=== PATIENT | female | born 2000 | race African-American/Black ===

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

== ENCOUNTER 2019-01-20 21:04 | Emergency (ER) | payer OTHER ==
[2019-01-20] MEDS ORDERED: ONDANSETRON 4 MG/2 ML VIAL IVPUSH ONE (21:32)
[2019-01-20] MEDS ORDERED: MAG HYDROX/AL HYDROX/SIMETH 30 ML UNIT-DOSE CUP PO ONE (21:32)
[2019-01-20] MEDS ORDERED: FAMOTIDINE 10 MG TABLET PO ONE (21:32)
[2019-01-20] MEDS ORDERED: MAG HYDROX/AL HYDROX/SIMETH 30 ML UNIT-DOSE CUP ONE (21:45)
[2019-01-20] MEDS ORDERED: FAMOTIDINE 10 MG TABLET ONE (21:45)
[2019-01-20] MEDS ORDERED: ONDANSETRON 4 MG/2 ML VIAL ONE (21:46)
[2019-01-20 22:01] VITALS: BMI 25.0
[2019-01-20 22:16] LABS: BASO % 0.5 % (0-2.0); EOS % 0.5 % (0-4.5); HEMATOCRIT 39.2 % (32.4-45.2); HEMOGLOBIN 12.9 GM/dL (10.7-15.3); LYMPH % 19.1 % (8-40); MCH 30.9 pg (25.7-33.7); MCHC 32.8 g/dl (32.0-36.0); MEAN CELL VOLUME 94.2 fl (80-96); MEAN PLT VOLUME 8.9 fl (7.5-11.1); MONO % 8.7 % (3.8-10.2); NEUT % 71.2 % (42.8-82.8); PLATELET COUNT 317 K/MM3 (134-434); RBC 4.16 M/mm3 (3.60-5.2); RDW 13.2 % (11.6-15.6)
--- NOTE | 2019-01-20 22:32 | PDOC ---
History of Present Illness - General Stated Complaint: ABD PAIN Time Seen by Provider: 01/20/19 21:17 History Source: Patient Exam Limitations: No Limitations - History of Present Illness Initial Comments: 01/20/19 21:43 19 yo female PMH chronic leukocytosis, polysubstance abuse including cocaine, heroin, and marijuana (last use 2 days ago) and cyclic vomiting syndrome, presents to the emergency department with epigastric pain, 10 episodes NB/NB vomiting for 4 days. Pain is described as sharp and burning with radiation up into her throat. Pain is constant and not related to eating or drinking, last BM 1 day ago reported as normal and denies difficulty with urination. Denies STI history, LMP 2 weeks ago, no recent travel or sick contacts Past History - Past Medical History Allergies/Adverse Reactions: Allergies Allergy/AdvReac Type Severity Reaction Status Date / Time No Known Allergies Allergy Verified 10/25/18 15:26 Home Medications: Ambulatory Orders NK [No Known Home Medication] 10/25/18 Anemia: No Asthma: Yes Cancer: No Cardiac Disorders: No CVA: No COPD: No CHF: No Dementia: No Diabetes: No GI Disorders: Yes (Gastritis) Disorders: No HTN: Yes Hypercholesterolemia: No Kidney Stones: No Liver Disease: No Psychiatric Problems: Yes (drug abuse/BIPOLAR & DEPRESSION) Seizures: No Thyroid Disease: No - Surgical History Abdominal Surgery: No Appendectomy: No Cardiac Surgery: No Cholecystectomy: No Lung Surgery: No Neurologic Surgery: No Orthopedic Surgery: No - Reproductive History PID: No - Immunization History Td Vaccination: Yes TDAP Vaccination: Yes Immunization Up to Date: Yes - Psycho Social/Smoking Cessation Hx Smoking History: Former smoker Have you smoked in the past 12 months: Yes Number of Cigarettes Smoked Daily: 5 Cigars Per Day: 0 'Breaking Loose' booklet given: 01/31/18 Hx Alcohol Use: No Drug/Substance Use Hx: No (STOPPED SMOKING POT 3WKS AGO) Substance Use Type: Cocaine, Marijuana, Opiates Hx Substance Use Treatment: Yes (completed this program in Nov 2017) Review of Systems - Review of Systems Constitutional: No: Chills, Fever Respiratory: No: Shortness of Breath Cardiac (ROS): No: Chest Pain, Edema ABD/GI: Yes: Nausea, Vomiting, Other (epigastric abdominal pain). No: Constipated, Diarrhea Musculoskeletal: No: Back Pain Neurological: No: Weakness *Physical Exam - Physical Exam General Appearance: Yes: Nourished, Appropriately Dressed, Apparent Distress HEENT: positive: EOMI Neck: positive: Supple. negative: Carotid bruit Respiratory/Chest: positive: Lungs Clear, Normal Breath Sounds. negative: Respiratory Distress, Accessory Muscle Use Cardiovascular: positive: Regular Rhythm, Regular Rate Vascular Pulses: Dorsalis-Pedis (R): 4+, Doralis-Pedis (L): 4+ Gastrointestinal/Abdominal: positive: Flat, Soft. negative: Pulsatile Mass, Distended, Guarding, Rebound, Tenderness Musculoskeletal: negative: CVA Tenderness Extremity: positive: Normal Capillary Refill, Normal Inspection, Normal Range of Motion Integumentary: positive: Normal Color, Dry, Warm Neurologic: positive: Fully Oriented, Alert, Normal Mood/Affect, Normal Response ED Treatment Course - LABORATORY CBC & Chemistry Diagram: 01/20/19 21:50 01/20/19 21:50 Medical Decision Making - Medical Decision Making 01/21/19 03:04 19 yo female PMH chronic leukocytosis, polysubstance abuse including cocaine, heroin, and marijuana (last use 2 days ago) and cyclic vomiting syndrome, anxiet and depression presents to the emergency department with epigastric pain , 10 episodes NB/NB vomiting for 4 days. Pain is described as sharp and burning with radiation up into her throat. Pain is constant and not related to eating or drinking, last BM 1 day ago reported as normal and denies difficulty with urination. Denies STI history, LMP 2 weeks ago, no recent travel or sick contacts Labs show known leukocytosis (15 today however, baseline seems to be around 17) Vitals WNL Pt comfortable in bed, sleeping. Pain is very distractable Pt states the pain is of similar quality and intensity as past episodes which she visited the ER for. Pt has been counseled on cyclic vomiting syndrome and the importance or not using illicit drugs Pt later states that she is constantly in so much pain and wants to kill herself. Pt has seen Psych in the past and has anxiety/depression. Denies having a current plan however states she will kill herself to multiple staff members Call placed to Psych for Eval, pending return call Pt s/o to night team
[2019-01-20 22:53] LABS: BILIRUBIN,TOTAL 0.7 mg/dL (0.2-1); BLOOD UREA NITROGEN 12.8 mg/dL (7-18); CALCIUM 9.6 mg/dL (8.5-10.1); CREATININE 0.7 mg/dL (0.55-1.3); POTASSIUM 3.5 mmol/L (3.5-5.1); TOT PROT 7.4 g/dl (6.4-8.2)
--- NOTE | 2019-01-20 23:05 | PDOC ---
Documentation entered by Chioma Jain SCRIBE, acting as scribe for Shelly Elkins MD. Shelly Elkins MD: This documentation has been prepared by the Cristobal gonzalez Xhesika, SCRIBE, under my direction and personally reviewed by me in its entirety. I confirm that the documentation accurately reflects all work, treatment, procedures, and medical decision making performed by me. Attending Attestation - Resident Resident Name: Benito Zuluaga - ED Attending Attestation I have performed the following: I have examined & evaluated the patient, The case was reviewed & discussed with the resident, I agree w/resident's findings & plan, Exceptions are as noted - HPI HPI: 01/21/19 01:30 19-year-old female brought in by ambulance initially for abdominal burning and then later she said she wanted to harm herself I agree with Dr. Germain's physical exam - Physicial Exam PE: 01/21/19 01:30 Well-nourished well-developed 19-year-old female presented with abdominal pain initially and then became tearful and said she want to harm herself Head normocephalic atraumatic Neck is supple Lungs are clear to auscultation bilaterally CVS regular rate and rhythm S1-S2 Abdomen no was no guarding or rebound Skin warm and dry Neuro alert and oriented and moving all extremities Psych depressed anxious tearful - Medical Decision Making 01/21/19 01:31 Plan is to get psychiatric eval by Dr Ramos in the morning Patient currently does not have any abdominal complaints
[2019-01-21 05:20] LABS: URINE APPEARANCE CLEAR; URINE BILIRUBIN NEGATIVE (NEGATIVE); URINE COLOR YELLOW; URINE GLUCOSE (UA) NEGATIVE (NEGATIVE); URINE KETONE 1+ (NEGATIVE); URINE LEUK ESTERASE NEGATIVE (NEGATIVE); URINE NITRITE NEGATIVE (NEGATIVE); URINE PROTEIN NEGATIVE (NEGATIVE); URINE UROBILINOGEN 0.2 mg/dL (0.2-1.0)
[2019-01-21 05:35] LABS: COCAINE, UR NEGATIVE ng/ml (CUTOFF=300); METHADONE, UR NEGATIVE ng/ml (CUTOFF=300); OPIATES, URI NEGATIVE ng/ml (CUTOFF=300); PHENCYCLIDINE,URINE NEGATIVE ng/ml (CUTOFF=25); URINE AMPHETAMINES NEGATIVE ng/ml (CUTOFF=500); URINE BARBITURATES NEGATIVE ng/ml (CUTOFF=200); URINE BENZODIAZEPINES NEGATIVE ng/ml (CUTOFF=200)
--- NOTE | 2019-01-21 07:26 | PDOC ---
*Physical Exam - Vital Signs Last Vital Signs Temp Pulse Resp BP Pulse Ox 98.5 F 100 H 17 156/95 97 01/20/19 21:10 01/21/19 07:43 01/21/19 07:43 01/21/19 07:43 01/21/19 07:43 <Darling Bae - Last Filed: 01/21/19 11:27> - Vital Signs Last Vital Signs Temp Pulse Resp BP Pulse Ox 98.5 F 87 18 135/72 100 01/20/19 21:10 01/21/19 01:00 01/21/19 01:00 01/21/19 01:00 01/21/19 03:30 <ZiggyJuanWesley Briscoe - Last Filed: 01/21/19 18:39> Heart Score/ECG Review #1 ECG reviewed & interpreted by me at: 11:25 General ECG Interpretation: Sinus Rhythm, Normal Rate 01/21/19 11:28 qtc at 500ms, proloned QT interval. nonspecific T wave abnormalities. <Gentry Baeie Kathiamlelena - Last Filed: 01/21/19 11:27> ED Treatment Course - LABORATORY CBC & Chemistry Diagram: 01/20/19 21:50 01/20/19 21:50 - ADDITIONAL ORDERS Additional order review: Laboratory Results 01/21/19 01/21/19 01/21/19 05:59 05:50 05:50 Serum , Qual Negative Urine Color Urine Appearance Urine pH Ur Specific [place] Urine Protein Urine Glucose (UA) Urine Ketones Urine Blood Urine Nitrite Urine Bilirubin Urine Urobilinogen Ur Leukocyte Esterase Opiates Screen Methadone Screen Acetaminophen <2. Barbiturate Screen Phencyclidine Screen Ur Amphetamines Screen MDMA (Ecstasy) Screen Benzodiazepines Screen Cocaine Screen U Marijuana (THC) Screen Alcohol, Quantitative < 3.0 01/21/19 01/21/19 05:00 05:00 Serum , Qual Urine Color Yellow Urine Appearance Clear Urine pH 6.0 Ur Specific [place] 1.018 Urine Protein Negative Urine Glucose (UA) Negative Urine Ketones 1+ H Urine Blood Negative Urine Nitrite Negative Urine Bilirubin Negative Urine Urobilinogen 0.2 Ur Leukocyte Esterase Negative Opiates Screen Negative Methadone Screen Negative Acetaminophen Barbiturate Screen Negative Phencyclidine Screen Negative Ur Amphetamines Screen Negative MDMA (Ecstasy) Screen Negative Benzodiazepines Screen Negative Cocaine Screen Negative U Marijuana (THC) Screen Positive A* Alcohol, Quantitative 01/20/19 21:50 RBC 4.16 MCV 94.2 MCHC 32.8 RDW 13.2 MPV 8.9 Neutrophils % 71.2 Lymphocytes % 19.1 D Monocytes % 8.7 Eosinophils % 0.5 D Basophils % 0.5 - Medications Given in the ED: ED Medications Discontinued Medications Generic Name Dose Route Start Last Admin Trade Name Andree PRN Reason Stop Dose Admin Al Hydroxide/Mg Hydroxide 30 ml 01/20/19 21:32 01/20/19 22:02 Mylanta Oral Suspension - PO 01/20/19 21:33 30 ml ONCE ONE Administration Famotidine 10 mg 01/20/19 21:32 01/20/19 22:02 Acid Counter Top Assembler PO 01/20/19 21:33 10 mg ONCE ONE Administration Lorazepam 1 mg 01/21/19 07:51 01/21/19 07:57 Ativan Injection - IVPUSH 01/21/19 07:52 1 mg ONCE ONE Administration Ondansetron HCl 4 mg 01/20/19 21:32 01/20/19 22:02 Zofran Injection IVPUSH 01/20/19 21:33 4 mg ONCE ONE Administration <Darling Bae - Last Filed: 01/21/19 11:27> - LABORATORY CBC & Chemistry Diagram: 01/20/19 21:50 01/20/19 21:50 - ADDITIONAL ORDERS Additional order review: Laboratory Results 01/21/19 01/21/19 01/21/19 05:59 05:00 05:00 Sodium Potassium Chloride Carbon Dioxide Anion Gap BUN Creatinine Est GFR (CKD-EPI)AfAm Est GFR (CKD-EPI)NonAf Random Glucose Calcium Total Bilirubin AST ALT Alkaline Phosphatase Total Protein Albumin Lipase Urine Color Yellow Urine Appearance Clear Urine pH 6.0 Ur Specific [place] 1.018 Urine Protein Negative Urine Glucose (UA) Negative Urine Ketones 1+ H Urine Blood Negative Urine Nitrite Negative Urine Bilirubin Negative Urine Urobilinogen 0.2 Ur Leukocyte Esterase Negative Opiates Screen Negative Methadone Screen Negative Acetaminophen <2. Barbiturate Screen Negative Phencyclidine Screen Negative Ur Amphetamines Screen Negative MDMA (Ecstasy) Screen Negative Benzodiazepines Screen Negative Cocaine Screen Negative U Marijuana (THC) Screen Positive A* 01/20/19 01/20/19 21:50 21:50 Sodium 135 L Potassium 3.5 Chloride 102 Carbon Dioxide 24 Anion Gap 9 BUN 12.8 Creatinine 0.7 Est GFR (CKD-EPI)AfAm 144.56 Est GFR (CKD-EPI)NonAf 124.72 Random Glucose 91 Calcium 9.6 Total Bilirubin 0.7 AST 17 ALT 15 Alkaline Phosphatase 93 Total Protein 7.4 Albumin 4.0 Lipase 140 Urine Color Urine Appearance Urine pH Ur Specific [place] Urine Protein Urine Glucose (UA) Urine Ketones Urine Blood Urine Nitrite Urine Bilirubin Urine Urobilinogen Ur Leukocyte Esterase Opiates Screen Methadone Screen Acetaminophen Barbiturate Screen Phencyclidine Screen Ur Amphetamines Screen MDMA (Ecstasy) Screen Benzodiazepines Screen Cocaine Screen U Marijuana (THC) Screen 01/20/19 21:50 RBC 4.16 MCV 94.2 MCHC 32.8 RDW 13.2 MPV 8.9 Neutrophils % 71.2 Lymphocytes % 19.1 D Monocytes % 8.7 Eosinophils % 0.5 D Basophils % 0.5 - Medications Given in the ED: ED Medications Discontinued Medications Generic Name Dose Route Start Last Admin Trade Name Andree PRN Reason Stop Dose Admin Al Hydroxide/Mg Hydroxide 30 ml 01/20/19 21:32 01/20/19 22:02 Mylanta Oral Suspension - PO 01/20/19 21:33 30 ml ONCE ONE Administration Famotidine 10 mg 01/20/19 21:32 01/20/19 22:02 Acid Counter Top Assembler PO 01/20/19 21:33 10 mg ONCE ONE Administration Ondansetron HCl 4 mg 01/20/19 21:32 01/20/19 22:02 Zofran Injection IVPUSH 01/20/19 21:33 4 mg ONCE ONE Administration <Wesley Brink - Last Filed: 01/21/19 18:39> Medical Decision Making - Medical Decision Making 01/21/19 07:[address]Ahmed Bay 19 y/o F hx of polysubstance abuse coming in for cyclic vomiting nausea and vomiting adressed Pt. states she is suicidal Dr. Ramos has been called for psych eval Says he will come in to see the patient. Pt. disposition pending pscych evaluation. 01/21/19 08:51 Dr. Ramos contacted for possible ETA. meg left on his answering service. 01/21/19 10:30 recommends transfer to psych facility due to patients suicidal ideation. 01/21/19 17:26 Bed found for patient at [facility] accepting physician Dr. Knutson pickup by [facility] ETA 7pm 01/21/19 18:38 EKG: sinus rhythm with marked sinus arrthymia, prolonged QT, <Wesley Brink - Last Filed: 01/21/19 18:39> Discharge <Darling Bae - Last Filed: 01/21/19 11:27> <Wesley Brink - Last Filed: 01/21/19 18:39> - Discharge Information Clinical Impression/Diagnosis: Suicide ideation, Acute depression, Marijuana use Condition: Fair Disposition: TRANSFER ACUTE CARE/OTHER HOSP
[2019-01-21] MEDS ORDERED: LORazepam 2 MG/ML SDV VIAL ONE ×4 (07:54→20:54)
--- NOTE | 2019-01-21 10:18 | CON.PSY ---
Psychiatry Consult Chief Complaint: i feel depressed and i want to kill myself. I have been smoking too much Marijuana. I am under lot of stress. pATIENT HAS NBEEN FREQUENTING Er with somatic comPLAINTS. Symptoms: reports: Depressed Mood, Suicidality, Decreased Motivation - Previous Psychiatric Treatment Outpatient: None Inpatient: None - Previous Substance Abuse Treatment Outpatient: None Inpatient: None - Allergies Allergies: Allergies Allergy/AdvReac Type Severity Reaction Status Date / Time No Known Allergies Allergy Verified 10/25/18 15:26 - Current Living Status Usual Living Arrangement: With Parent - Current Mental Status Evaluation Appearance: Disheveled Attitude: Guarded - Affect Affect: Constrictive Appropriateness: Appropriate to Content - Mood Mood: Depressed - Speech/Language Expressive: Coherent - Psychomotor Activity Psychomotor Activity: Slowed - Thought Process Thought Process: Intact - Thought Content Hallucinations: Absent Delusions: Absent - Self Perception Self Perception: No Impairment - Cognition Attention: Alert Orientation: Time Memory, Immediate Recall: Intact Memory, Short Term: 3/3 Memory, Remote with Promptin/3 - Concentration Serial Sevens Intact: No Simple Calculations Intact: Yes - Abstraction Proverb Interpretation: Intact Judgement: Severely Impaired - Insight Insight: Impaired - Impulse Control Impulse Control: Severly Impaired - Suicidal Ideation Suicidal Ideation: Yes (NO CONCRETE PLANS, except for excessiveMarijuana u) - Homicidal Ideation Homicidal Ideation: No Assessment/Plan 1) Transfer to Psych for Depression with suicidal ideas and ? plans.
--- NOTE | 2019-01-21 10:39 | PDOC ---
*Physical Exam - Vital Signs Last Vital Signs Temp Pulse Resp BP Pulse Ox 98.5 F 100 H 17 156/95 97 01/20/19 21:10 01/21/19 07:43 01/21/19 07:43 01/21/19 07:43 01/21/19 07:43 ED Treatment Course - LABORATORY CBC & Chemistry Diagram: 01/20/19 21:50 01/20/19 21:50 - ADDITIONAL ORDERS Additional order review: Laboratory Results 01/21/19 01/21/19 01/21/19 05:59 05:50 05:50 Sodium Potassium Chloride Carbon Dioxide Anion Gap BUN Creatinine Est GFR (CKD-EPI)AfAm Est GFR (CKD-EPI)NonAf Random Glucose Calcium Total Bilirubin AST ALT Alkaline Phosphatase Total Protein Albumin Lipase Serum , Qual Negative Urine Color Urine Appearance Urine pH Ur Specific [place] Urine Protein Urine Glucose (UA) Urine Ketones Urine Blood Urine Nitrite Urine Bilirubin Urine Urobilinogen Ur Leukocyte Esterase Opiates Screen Methadone Screen Acetaminophen <2. Barbiturate Screen Phencyclidine Screen Ur Amphetamines Screen MDMA (Ecstasy) Screen Benzodiazepines Screen Cocaine Screen U Marijuana (THC) Screen Alcohol, Quantitative < 3.0 01/21/19 01/21/19 01/20/19 05:00 05:00 21:50 Sodium Potassium Chloride Carbon Dioxide Anion Gap BUN Creatinine Est GFR (CKD-EPI)AfAm Est GFR (CKD-EPI)NonAf Random Glucose Calcium Total Bilirubin AST ALT Alkaline Phosphatase Total Protein Albumin Lipase 140 Serum , Qual Urine Color Yellow Urine Appearance Clear Urine pH 6.0 Ur Specific [place] 1.018 Urine Protein Negative Urine Glucose (UA) Negative Urine Ketones 1+ H Urine Blood Negative Urine Nitrite Negative Urine Bilirubin Negative Urine Urobilinogen 0.2 Ur Leukocyte Esterase Negative Opiates Screen Negative Methadone Screen Negative Acetaminophen Barbiturate Screen Negative Phencyclidine Screen Negative Ur Amphetamines Screen Negative MDMA (Ecstasy) Screen Negative Benzodiazepines Screen Negative Cocaine Screen Negative U Marijuana (THC) Screen Positive A* Alcohol, Quantitative 01/20/19 21:50 Sodium 135 L Potassium 3.5 Chloride 102 Carbon Dioxide 24 Anion Gap 9 BUN 12.8 Creatinine 0.7 Est GFR (CKD-EPI)AfAm 144.56 Est GFR (CKD-EPI)NonAf 124.72 Random Glucose 91 Calcium 9.6 Total Bilirubin 0.7 AST 17 ALT 15 Alkaline Phosphatase 93 Total Protein 7.4 Albumin 4.0 Lipase Serum , Qual Urine Color Urine Appearance Urine pH Ur Specific [place] Urine Protein Urine Glucose (UA) Urine Ketones Urine Blood Urine Nitrite Urine Bilirubin Urine Urobilinogen Ur Leukocyte Esterase Opiates Screen Methadone Screen Acetaminophen Barbiturate Screen Phencyclidine Screen Ur Amphetamines Screen MDMA (Ecstasy) Screen Benzodiazepines Screen Cocaine Screen U Marijuana (THC) Screen Alcohol, Quantitative 01/20/19 21:50 RBC 4.16 MCV 94.2 MCHC 32.8 RDW 13.2 MPV 8.9 Neutrophils % 71.2 Lymphocytes % 19.1 D Monocytes % 8.7 Eosinophils % 0.5 D Basophils % 0.5 - Medications Given in the ED: ED Medications Discontinued Medications Generic Name Dose Route Start Last Admin Trade Name Freq PRN Reason Stop Dose Admin Al Hydroxide/Mg Hydroxide 30 ml 01/20/19 21:32 01/20/19 22:02 Mylanta Oral Suspension - PO 01/20/19 21:33 30 ml ONCE ONE Administration Famotidine 10 mg 01/20/19 21:32 01/20/19 22:02 Acid Trencher Driver PO 01/20/19 21:33 10 mg ONCE ONE Administration Lorazepam 1 mg 01/21/19 07:51 01/21/19 07:57 Ativan Injection - IVPUSH 01/21/19 07:52 1 mg ONCE ONE Administration Ondansetron HCl 4 mg 01/20/19 21:32 01/20/19 22:02 Zofran Injection IVPUSH 01/20/19 21:33 4 mg ONCE ONE Administration Medical Decision Making - Medical Decision Making 01/21/19 10:38 pt signed out overnight team pending psych eval, +marijuana use and h/o cyclic vomiting and abdominal pain. seen by Dr Ramos, 10AM 2 PC filled out, will need inpatient psych will arrange for transport. SW and RN team made aware, remains on 1:1 for SI/ depression. Discharge - Discharge Information Problems reviewed: Yes Clinical Impression/Diagnosis: Suicide ideation, Acute depression, Marijuana use Condition: Fair Disposition: TRANSFER ACUTE CARE/OTHER HOSP - Follow up/Referral - Patient Discharge Instructions - Post Discharge Activity
[2019-01-21] MEDS ORDERED: ACETAMINOPHEN 1000 MG/100 ML VIAL (NON FORMULARY) IVPB ONE (12:57)
[2019-01-21] MEDS ORDERED: ACETAMINOPHEN INJECTION 100 ML IVPB ONE (13:22)
[2019-01-21] MEDS ORDERED: IBUPROFEN 600 MG TABLET (FP) PO ONE ×2 (16:38→18:32)
[2019-01-21] MEDS ORDERED: MAG HYDROX/AL HYDROX/SIMETH 30 ML UNIT-DOSE CUP ONE (20:43)
[2019-01-21] MEDS ORDERED: MAG HYDROX/AL HYDROX/SIMETH 30 ML UNIT-DOSE CUP PO ONE (20:54)
[2019-01-21] MEDS ORDERED: ONDANSETRON 4 MG/2 ML VIAL ONE (20:55)
[2019-01-21] MEDS ORDERED: ONDANSETRON 4 MG/2 ML VIAL IVPUSH ONE (20:58)
[2019-01-21 21:03] VITALS: BP 152/99; PULSE 98; TEMP 98.3
--- NOTE | 2019-01-22 10:34 | EKG ---
Test Reason : Blood Pressure : / mmHG Vent. Rate : 095 BPM Atrial Rate : 095 BPM P-R Int : 144 ms QRS Dur : 076 ms QT Int : 398 ms P-R-T Axes : 059 057 049 degrees QTc Int : 500 ms SINUS RHYTHM WITH MARKED SINUS ARRHYTHMIA PROLONGED QT ABNORMAL ECG WHEN COMPARED WITH ECG OF 25-OCT-2018 13:21, NO SIGNIFICANT CHANGE WAS FOUND Confirmed by ROJELIO LAWSON, RUBY ([id number]) on 01/22/2019 10:34:31 AM Referred By: Confirmed By:RUBY SERRATO MD
== END 2019-01-21 21:03 | disposition short-term general hospital (02) ==
LOC: JER 21:04
PROC: 3E033NZ Introduction of Analgesics, Hypnotics, Sedatives into Peripheral Vein, Percutaneous Approach (ICD-10-PCS; principal; 2019-01-20)
PROC: 3E033NZ Introduction of Analgesics, Hypnotics, Sedatives into Peripheral Vein, Percutaneous Approach (ICD-10-PCS; 2019-01-20)
DX: F32.9 Major depressive disorder, single episode, unspecified (principal); R45.851 Suicidal ideations; F11.10 Opioid abuse, uncomplicated; R11.15 Cyclical vomiting syndrome unrelated to migraine; F14.10 Cocaine abuse, uncomplicated; F31.9 Bipolar disorder, unspecified; D72.829 Elevated white blood cell count, unspecified; I10 Essential (primary) hypertension; Z87.09 Personal history of other diseases of the respiratory system
CPT/HCPCS: 36415; 80053; 80307; 81003; 83690; 84703; 85025; 87077; 87086; 93005; 93010; 96374; 96375; 96376; 99285-25; J0131

== ENCOUNTER 2019-03-16 13:30 | Emergency (ER) | payer OTHER ==
[2019-03-16] MEDS ORDERED: LORazepam 2 MG/ML SDV VIAL ONE ×2 (13:48→14:29)
--- NOTE | 2019-03-16 13:54 | PDOC ---
History of Present Illness - General Chief Complaint: Pain Stated Complaint: ABDOMINAL PAIN Time Seen by Provider: 03/16/19 13:51 History Source: Patient Exam Limitations: No Limitations, Clinical Condition - History of Present Illness Initial Comments: 03/16/19 13:53 Source: Patient, poor historian, thrashing about, intermittently answering vs crying out HPI: 19yo F PMH chronic leukocytosis, polysubstance abuse (cocaine, heroin, and marijuana), pancreatitis, cyclic vomiting syndrome, frequent flyer presenting to the ED w/epigastric pain, N/V. Intermittent epigastric pain with multiple visits for similar pains non-radiating, sharp vs burning, associated with 5 episodes of NBNB emesis this morning. Denies current CP, endorses SOB with crying and thrashing about, denies recent illness, fevers, chills. LMP: "Last month." Denies lower abdominal pain. Lives with mother, unemployed, not in school. Sexually active, uses condoms, states that she could not be . All: NKDA Meds: per chart PMH: as above PSH: unable to obtain Past History - Past Medical History Allergies/Adverse Reactions: Allergies Allergy/AdvReac Type Severity Reaction Status Date / Time No Known Allergies Allergy Verified 03/16/19 13:54 Home Medications: Ambulatory Orders Famotidine [Pepcid] 40 mg PO DAILY 30 Days #30 tablet 03/16/19 Ondansetron HCl [Zofran] 4 mg PO TID PRN #10 tablet 03/16/19 Anemia: No Asthma: Yes Cancer: No Cardiac Disorders: No CVA: No COPD: No CHF: No Dementia: No Diabetes: No GI Disorders: Yes (Gastritis) Disorders: No HTN: Yes Hypercholesterolemia: No Kidney Stones: No Liver Disease: No Psychiatric Problems: Yes (drug abuse/BIPOLAR & DEPRESSION) Seizures: No Thyroid Disease: No - Surgical History Abdominal Surgery: No Appendectomy: No Cardiac Surgery: No Cholecystectomy: No Lung Surgery: No Neurologic Surgery: No Orthopedic Surgery: No - Reproductive History PID: No - Immunization History Td Vaccination: Yes TDAP Vaccination: Yes Immunization Up to Date: Yes - Psycho Social/Smoking Cessation Hx Smoking History: Former smoker Have you smoked in the past 12 months: Yes Number of Cigarettes Smoked Daily: 5 Cigars Per Day: 0 'Breaking Loose' booklet given: 01/31/18 Hx Alcohol Use: No Drug/Substance Use Hx: No (STOPPED SMOKING POT 3WKS AGO) Substance Use Type: Cocaine, Marijuana, Opiates Hx Substance Use Treatment: Yes (completed this program in Nov 2017) Review of Systems - Review of Systems Able to Perform ROS?: No (pt minimally cooperative) Is the patient limited Mohawk proficient: Yes Constitutional: No: Chills, Fever Respiratory: Yes: Shortness of Breath (while thrashing). No: Cough, Productive cough Cardiac (ROS): No: Chest Pain, Irregular Heart Rate, Syncope, Chest Tightness ABD/GI: Yes: Nausea, Vomiting. No: Constipated, Diarrhea : No: Burning, Dysuria, Pain *Physical Exam - Physical Exam 03/16/19 14:29 GEN: Violently shaking, stops briefly when asked to stop, shouting. Alert and oriented. HEENT: NCAT, EOMI. Sclera anicteric, noninjected. No facial asymmetry. Moist mucous membranes. Normal voice. Trachea midline. CV: RRR, S1/S2, no murmurs / rubs / gallops appreciated. LUNG: CTAB, normal work of breathing. No wheezes, rales, rhonchi. No cough. GI: Soft, +tender in epigastrium, nondistended, no masses. EXTREMITIES: No LE edema. No obvious deformities of all extremities. SKIN: Warm, dry, non-jaundiced. PSYCH: Psychomotor agitation. NEURO: Moving all extremities well. Normal strength and sensation grossly. ED Treatment Course - LABORATORY CBC & Chemistry Diagram: 03/16/19 14:00 03/16/19 14:00 - Medications Given in the ED: ED Medications Discontinued Medications Generic Name Dose Route Start Last Admin Trade Name Freq PRN Reason Stop Dose Admin Lorazepam 2 mg 03/16/19 13:40 03/16/19 13:50 Ativan Injection - IM 03/16/19 13:41 2 mg ONCE ONE Administration Medical Decision Making - Medical Decision Making 03/16/19 14:37 19yo F PMH chronic leukocytosis, polysubstance abuse (cocaine, heroin, and marijuana), pancreatitis, cyclic vomiting syndrome, frequent flyer presenting to the ED w/epigastric pain, N/V. DDX: Cyclic vomiting, /ectopic, viral gastritis, malingering. - CBC, CMP, Preg, Lipase - Ativan - EKG - anti-emetic pending QTc - 1L IVF - UA, UTox 03/16/19 14:45 - Patient went to restroom with urine cup, emerged vomiting clear water into emesis bag ~16oz, denies drinking water in restroom - Of note, normal ambulation to restroom and back, shaking resumed shortly after back in bed 03/16/19 15:12 - Patient now with non-tender abdomen, endorsing continued nausea - Denies recent drug use, states she has not smoked marijuana for 3 months - EKG 97BPM, NSR, normal axis, normal intervals, QTc 452, no ischemic morphologies 03/16/19 15:23 - Reglan - Pepcid - Ofirmev 03/16/19 17:13 - Remains non-tender, found sleeping, starts writhing shortly after being awoke - Continued nausea, zofran ordered 03/16/19 17:15 - Labs unremarkable aside from isolated leukocytosis c/w prior 03/16/19 18:31 - Patient without nausea, drinking juice - [place] [facility] [place] Dispo: Home Discharge - Discharge Information Problems reviewed: Yes Clinical Impression/Diagnosis: Cyclical vomiting Abdominal pain Qualifiers: Abdominal location: epigastric Qualified Code(s): R10.13 - Epigastric pain Condition: Improved Disposition: HOME - Admission No - Follow up/Referral Referrals: Cadence Isaac, LOSS CONTROL REPRESENTATIVE [Primary Care Provider] - - Patient Discharge Instructions Patient Printed Discharge Instructions: DI for Nausea -- Adult, DI for Vomiting -- Adult Additional Instructions: You were evaluated for your vomiting today. It is most likely caused by your marijuana use. Take the prescriptions as prescribed to help with pain and vomiting. Follow up with your primary care doctor this week. Return to the ED for any new or worsening symptoms. - Post Discharge Activity
[2019-03-16 14:02] VITALS: TEMP 98.1; BMI 24.0
--- NOTE | 2019-03-16 15:28 | PDOC ---
Documentation entered by Kei Easton SCRIBE, acting as scribe for Isidra Nunes MD. Isidra Nunes MD: This documentation has been prepared by the Rustam gonzalez Daniel, SCRIBE, under my direction and personally reviewed by me in its entirety. I confirm that the documentation accurately reflects all work, treatment, procedures, and medical decision making performed by me. Attending Attestation - Resident Resident Name: ReyesJay - ED Attending Attestation I have performed the following: I have examined & evaluated the patient, The case was reviewed & discussed with the resident, I agree w/resident's findings & plan, Exceptions are as noted - HPI HPI: 03/16/19 14:07 The patient is a 19 year old female with a past medical history of chronic leukocytosis, polysubstance abuse (cocaine, heroin, and marijuana), pancreatitis , and cyclic vomiting syndrome here today for evaluation of abdominal pain. The patient reports that she has had 10 days of diffuse abdominal pain and notes associated vomiting (5 episodes today). Patient denies headache, lightheadedness. Denies fever, chills. Denies chest pain, shortness of breath. Denies diarrhea. Allergies: NKA PCP: Cadence Isaac - Physicial Exam PE: 03/16/19 15:20 awake alert lungs clear bilat heart reg tachycardia. abd soft nt nd ext wwp. skin diaphoretic, nuero alert oriented x 3. - Medical Decision Making 03/16/19 15:21 19 yo F h/o cyclic vomting, substance abuse here with c/o abd pain and vomiting. pt has been seen several times for the past. denies any drug use in over 3 months. pt was found to be forcefully vomiting in ed, screaming and shaking requesting medication for her pain and vomiting. plan ativan, antitemetics. reassess. iv hydration tox screen. Heart Score/ECG Review #1 General ECG Interpretation: Sinus Rhythm, Normal Rate (97), Normal Intervals, No acute ischemic changes
[2019-03-16] MEDS ORDERED: FAMOTIDINE 20 MG/50 ML IVPB 20 MG/50 ML MG IVPB ONE ×2 (15:31→15:40)
[2019-03-16] MEDS ORDERED: METOCLOPRAMIDE HCL INJECTION 10 MG/2 ML VIAL IVPUSH ONE (15:31)
[2019-03-16] MEDS ORDERED: ACETAMINOPHEN 1000 MG/100 ML VIAL (NON FORMULARY) IVPB ONE (15:38)
[2019-03-16] MEDS ORDERED: METOCLOPRAMIDE HCL INJECTION 10 MG/2 ML VIAL ONE (15:40)
[2019-03-16 15:51] LABS: BASO % 0.4 % (0-2.0); EOS % 0.5 % (0-4.5); HEMOGLOBIN 13.2 GM/dL (10.7-15.3); LYMPH % 10.5 % (8-40); MCH 30.1 pg (25.7-33.7); MCHC 32.9 g/dl (32.0-36.0); MEAN CELL VOLUME 91.6 fl (80-96); MONO % 3.3 % (3.8-10.2); NEUT % 85.3 % (42.8-82.8); PLATELET COUNT 367 K/MM3 (134-434); RBC 4.37 M/mm3 (3.60-5.2); RDW 13.4 % (11.6-15.6)
[2019-03-16 16:10] LABS: ALBUMIN 4.3 g/dl (3.4-5.0); BILIRUBIN,TOTAL 0.4 mg/dL (0.2-1); BLOOD UREA NITROGEN 11.7 mg/dL (7-18); CREATININE 0.8 mg/dL (0.55-1.3); POTASSIUM 4.3 mmol/L (3.5-5.1); TOT PROT 8.1 g/dl (6.4-8.2)
[2019-03-16] MEDS ORDERED: ACETAMINOPHEN INJECTION 100 ML IVPB ONE (16:31)
[2019-03-16] MEDS ORDERED: ONDANSETRON 4 MG/2 ML VIAL IVPUSH ONE (17:13)
[2019-03-16] MEDS ORDERED: ONDANSETRON 4 MG/2 ML VIAL ONE (17:21)
[2019-03-16 18:04] VITALS: BP 148/90; PULSE 98
--- NOTE | 2019-03-17 09:44 | EKG ---
Test Reason : Blood Pressure : / mmHG Vent. Rate : 097 BPM Atrial Rate : 097 BPM P-R Int : 140 ms QRS Dur : 078 ms QT Int : 356 ms P-R-T Axes : 076 060 059 degrees QTc Int : 452 ms NORMAL SINUS RHYTHM BIATRIAL ENLARGEMENT ABNORMAL ECG WHEN COMPARED WITH ECG OF 21-JAN-2019 11:23, NO SIGNIFICANT CHANGE WAS FOUND Confirmed by AJNAE PATEL MD ([id number]) on 03/17/2019 9:43:45 AM Referred By: Confirmed By:JANAE PATEL MD
== END 2019-03-16 18:40 | disposition home or self-care (01) ==
LOC: JER 13:30
PROC: 3E023NZ Introduction of Analgesics, Hypnotics, Sedatives into Muscle, Percutaneous Approach (ICD-10-PCS; principal; 2019-03-16)
PROC: 3E033GC Introduction of Other Therapeutic Substance into Peripheral Vein, Percutaneous Approach (ICD-10-PCS; 2019-03-16)
PROC: 3E033GC Introduction of Other Therapeutic Substance into Peripheral Vein, Percutaneous Approach (ICD-10-PCS; 2019-03-16)
PROC: 3E033GC Introduction of Other Therapeutic Substance into Peripheral Vein, Percutaneous Approach (ICD-10-PCS; 2019-03-16)
PROC: 3E033NZ Introduction of Analgesics, Hypnotics, Sedatives into Peripheral Vein, Percutaneous Approach (ICD-10-PCS; 2019-03-16)
PROC: 3E033NZ Introduction of Analgesics, Hypnotics, Sedatives into Peripheral Vein, Percutaneous Approach (ICD-10-PCS; 2019-03-16)
DX: R11.15 Cyclical vomiting syndrome unrelated to migraine (principal); D72.829 Elevated white blood cell count, unspecified; F19.10 Other psychoactive substance abuse, uncomplicated; K86.9 Disease of pancreas, unspecified; F31.9 Bipolar disorder, unspecified
CPT/HCPCS: 36415; 80053; 83690; 84703; 85025; 93005; 93010; 96365; 96372; 96375; 99284-25; J0131

== ENCOUNTER 2019-03-17 12:45 | Inpatient (IN) | payer OTHER ==
--- NOTE | 2019-03-17 12:59 | PDOC ---
History of Present Illness - General Chief Complaint: Pain Stated Complaint: ABDOMINAL PAIN/vomiting Time Seen by Provider: 03/17/19 12:58 - History of Present Illness Initial Comments: 03/17/19 16:15 19 y/o F hx of cyclic vomiting, polysubstance abuse (cocaine, heroin,marijuana) , depression, anxiety, bipolar disorder presents with abdominal pain, nausea and vomiting. Pt is a bounce back from yesterday for the same complaint. Pt. reports epigastric pain that began yesterday night after discharge yesterday. Unable to characterize the pain at this time . Has had multiple episodes of non- bilious bloody emesis. She had 2 episodes of emesis here in the ED which were non-bloody. Of note, patient is a frequent flyer for the same complaint and has tested positive for marijuana on last visit. Pt states that she is depressed and wants to harm herself. she denies an active plan, or homicidal ideation. Pt has spent 3 weeks at [facility] for depression and suicidal ideation in the past. She denies, fevers, chills, bloody/tarry stools. 03/17/19 16:17 03/17/19 16:18 03/17/19 16:24 Past History - Past Medical History Allergies/Adverse Reactions: Allergies Allergy/AdvReac Type Severity Reaction Status Date / Time No Known Allergies Allergy Verified 03/17/19 12:48 Home Medications: Ambulatory Orders Famotidine [Pepcid] 40 mg PO DAILY 30 Days #30 tablet 03/16/19 Ondansetron HCl [Zofran] 4 mg PO TID PRN #10 tablet 03/16/19 Seroquel 100 mg PO HS 03/18/19 Anemia: No Asthma: Yes Cancer: No Cardiac Disorders: No CVA: No COPD: No CHF: No Dementia: No Diabetes: No GI Disorders: Yes (Gastritis) Disorders: No HTN: Yes Hypercholesterolemia: No Kidney Stones: No Liver Disease: No Psychiatric Problems: Yes (drug abuse/BIPOLAR & DEPRESSION) Seizures: No Thyroid Disease: No - Surgical History Abdominal Surgery: No Appendectomy: No Cardiac Surgery: No Cholecystectomy: No Lung Surgery: No Neurologic Surgery: No Orthopedic Surgery: No - Reproductive History PID: No - Immunization History Td Vaccination: Yes TDAP Vaccination: Yes Immunization Up to Date: Yes - Psycho Social/Smoking Cessation Hx Smoking History: Former smoker Have you smoked in the past 12 months: Yes Number of Cigarettes Smoked Daily: 5 Cigars Per Day: 0 'Breaking Loose' booklet given: 01/31/18 Hx Alcohol Use: No Drug/Substance Use Hx: No (STOPPED SMOKING POT 3WKS AGO) Substance Use Type: Cocaine, Marijuana, Opiates Hx Substance Use Treatment: Yes (completed this program in Nov 2017) Review of Systems - Review of Systems Comments:: 03/17/19 16:29 GENERAL/CONSTITUTIONAL: No fever or chills. No weakness. HEAD, EYES, EARS, NOSE AND THROAT: No change in vision. No ear pain or discharge. No sore throat. CARDIOVASCULAR: No chest pain or shortness of breath RESPIRATORY: No cough, wheezing, or hemoptysis. GASTROINTESTINAL: +nausea, vomiting. negative for diarrhea, bloody stools GENITOURINARY: No dysuria, frequency, or change in urination. MUSCULOSKELETAL: No joint or muscle swelling or pain. No neck or back pain. SKIN: No rash NEUROLOGIC: No headache, vertigo, loss of consciousness, or change in strength/ sensation. ENDOCRINE: No increased thirst. No abnormal weight change HEMATOLOGIC/LYMPHATIC: No anemia, easy bleeding, or history of blood clots. ALLERGIC/IMMUNOLOGIC: No hives or skin allergy. *Physical Exam - Physical Exam 03/17/19 16:12 GENERAL: Awake, alert, and oriented. In distress HEAD: No signs of trauma, normocephalic, atraumatic EYES: PERRLA, EOMI, sclera anicteric, conjunctiva clear ENT: Auricles normal inspection, hearing grossly normal, nares patent, oropharynx clear without exudates. Moist mucosa NECK: Normal ROM, supple, no lymphadenopathy, JVD, or masses LUNGS: No distress, speaks full sentences, clear to auscultation bilaterally HEART: Regular rate and rhythm, normal S1 and S2, no murmurs, rubs or gallops, peripheral pulses normal and equal bilaterally. ABDOMEN: Soft, normoactive bowel sounds, diffuse abdominal tenderness . EXTREMITIES : Normal inspection, Normal range of motion, no edema. No clubbing or cyanosis NEUROLOGICAL: Cranial nerves II through XII grossly intact. Normal speech, normal gait, no focal sensorimotor deficits SKIN: Warm, Dry, normal turgor, no rashes or lesions noted ED Treatment Course - LABORATORY CBC & Chemistry Diagram: 03/19/19 11:30 03/19/19 11:30 Medical Decision Making - Medical Decision Making 03/17/19 16:30 19 y/o F hx of cyclic vomiting, polysubstance abuse (cocaine, heroin,marijuana) , depression, anxiety, bipolar disorder presents with abdominal pain, nausea and vomiting 03/17/19 16:33 elevated white count 27 hyponateremia 132 creatine kinase 1707 CK-MB 9.5 troponin 0.08 Lipase 53 (not-elevated) Pending EKG, UA, blood cultures, urine cultures -Pt given a dose of zosyn pt was very agitated and moaning profusely. 03/17/19 16:45 ekg: sinus rhythm with marked sinus arrhythmia 03/17/19 17:47 repeat troponin sent. 03/17/19 18:17 Dr. Ramos aware of pt with suicidal ideation with no plan, and no homicidial ideation at this time. He will see pt. in the morning. 03/17/19 18:18 Pt to be admitted to service for rhabdomyolysis. Discharge - Discharge Information Problems reviewed: Yes Clinical Impression/Diagnosis: Rhabdomyolysis Qualifiers: Rhabdomyolysis type: non-traumatic Qualified Code(s): M62.82 - Rhabdomyolysis Condition: Guarded Disposition: HOME - Follow up/Referral - Patient Discharge Instructions - Post Discharge Activity
[2019-03-17] MEDS ORDERED: SODIUM CHLORIDE 0.9% 500 ML INFUS.BAG IV ONE (13:03)
[2019-03-17 13:55] LABS: BASO % 0.4 % (0-2.0); HEMATOCRIT 37.1 % (32.4-45.2); HEMOGLOBIN 12.6 GM/dL (10.7-15.3); LYMPH % 7.3 % (8-40); MCH 30.7 pg (25.7-33.7); MCHC 34.1 g/dl (32.0-36.0); MEAN CELL VOLUME 90.2 fl (80-96); MEAN PLT VOLUME 8.7 fl (7.5-11.1); MONO % 5.9 % (3.8-10.2); NEUT % 86.4 % (42.8-82.8); PLATELET COUNT 321 K/MM3 (134-434); RBC 4.11 M/mm3 (3.60-5.2); RDW 13.3 % (11.6-15.6)
[2019-03-17] MEDS ORDERED: ONDANSETRON 4 MG/2 ML VIAL IVPUSH ONE (14:35)
[2019-03-17] MEDS ORDERED: SUCRALFATE 1 GM TABLET (FP) PO ONE (14:35)
[2019-03-17] MEDS ORDERED: MAG HYDROX/AL HYDROX/SIMETH -MYLANTA- ORAL SUSPENSION PO ONE (14:35)
[2019-03-17] MEDS ORDERED: FAMOTIDINE 20 MG/50 ML IVPB 20 MG/50 ML MG IVPB ONE ×2 (14:35→15:28)
[2019-03-17 14:54] LABS: ALBUMIN 4.3 g/dl (3.4-5.0); BILIRUBIN,TOTAL 0.6 mg/dL (0.2-1); BLOOD UREA NITROGEN 17.3 mg/dL (7-18); CALCIUM 9.4 mg/dL (8.5-10.1); CREATININE 0.8 mg/dL (0.55-1.3); MAGNESIUM 1.8 mg/dL (1.8-2.4); PHOSPHOROUS 3.1 mg/dL (2.5-4.9); POTASSIUM 3.5 mmol/L (3.5-5.1); TOT PROT 7.8 g/dl (6.4-8.2)
[2019-03-17] MEDS ORDERED: SODIUM CHLORIDE 1,000 ML IV STA (15:00)
[2019-03-17] MEDS ORDERED: HALOPERIDOL LACTATE 5 MG/ML IV ONE (15:08)
[2019-03-17] MEDS ORDERED: SUCRALFATE 1 GM TABLET (FP) ONE (15:27)
[2019-03-17] MEDS ORDERED: HALOPERIDOL LACTATE 5 MG/ML ONE (15:27)
[2019-03-17] MEDS ORDERED: ONDANSETRON 4 MG/2 ML VIAL ONE (15:28)
[2019-03-17] MEDS ORDERED: MAG HYDROX/AL HYDROX/SIMETH 30 ML UNIT-DOSE CUP ONE (15:28)
[2019-03-17 15:34] LABS: ANISOCYTOSIS 0; MACROCYTOSIS 0; PLATELET ESTIMATE NORMAL
[2019-03-17] MEDS ORDERED: PIPERACILLIN/TAZOB 3.375 GM 3.375 GM in DEXTROSE 5%-WATER - 50 ML IVPB ONE (15:39)
[2019-03-17] MEDS ORDERED: PIPERACILLIN/TAZOB 3.375 GM 3.375 GM/50 ML BAG IVPB ONE (15:55)
--- NOTE | 2019-03-17 16:08 | PDOC ---
Documentation entered by Chioma Jain SCRIBE, acting as scribe for Elvin Newton MD. Elvin Newton MD: This documentation has been prepared by the Cristobal gonzalez Xhesika, SCRIBE, under my direction and personally reviewed by me in its entirety. I confirm that the documentation accurately reflects all work, treatment, procedures, and medical decision making performed by me. Attending Attestation - Resident Resident Name: Wesley Brink - ED Attending Attestation I have performed the following: I have examined & evaluated the patient, The case was reviewed & discussed with the resident, I agree w/resident's findings & plan, Exceptions are as noted - HPI HPI: 03/17/19 15:12 The patient is a 19 year old female with a past medical history of chronic leukocytosis, polysubstance abuse (cocaine, heroin, and marijuana), pancreatitis , and cyclic vomiting syndrome who presents to the ED BIBA for chronic abdominal pain. Pt states she was seen here yesterday for similar symptoms and was d/c after feeling better. Pt states her pain was worse today, prompting her arrival to the ED. Patient denies headache, lightheadedness. Denies fever, chills. Denies chest pain, shortness of breath. Denies diarrhea. Allergies: NKA PCP: Cadence Isaac - Physicial Exam PE: 03/17/19 15:12 Vitals: Triage Vital signs reviewed Chest Wall: Nontender Cardiac: Regular rate and rhythm, no murmurs, no rubs, no gallops, Lungs: Clear to auscultation bilateral, good air movement bilaterally, Abdomen:+ diffuse upper abdominal pain, Soft, nondistended, normal bowel sounds. Extremities: Full range of motion to all extremities, no cyanosis, clubbing, or edema Skin: Warm and dry, no rashes or lesions, no petechiae - Medical Decision Making 03/17/19 16:09 Diffuse abdominal pain now with elevated white blood cell count, elevated CK and indeterminate troponin IV fluids ordered blood cultures ordered broad-spectrum antibiotics ordered We will CAT scan observe and reassess 03/17/19 17:14 Chronic abdominal pain with new lab abnormalities will cover with antibiotics CAT scan Dr. Elkins to follow-up CAT scan results and disposition
[2019-03-17 17:52] LABS: HYALINE CASTS 10 /lpf (0-8); PH,URINE 5.5 (5.0-8.0); URINE APPEARANCE CLEAR; URINE BACTERIA 9.6 /hpf (NEGATIVE); URINE BILIRUBIN NEGATIVE (NEGATIVE); URINE COLOR YELLOW; URINE GLUCOSE (UA) NEGATIVE (NEGATIVE); URINE KETONE 3+ (NEGATIVE); URINE LEUK ESTERASE NEGATIVE (NEGATIVE); URINE NITRITE NEGATIVE (NEGATIVE); URINE PROTEIN 1+ (NEGATIVE); URINE RBC 1 /hpf (0-4); URINE UROBILINOGEN 0.2 mg/dL (0.2-1.0); URINE WBC 1 /hpf (0-5)
[2019-03-17 18:04] LABS: COCAINE, UR NEGATIVE ng/ml (CUTOFF=300); METHADONE, UR NEGATIVE ng/ml (CUTOFF=300); OPIATES, URI NEGATIVE ng/ml (CUTOFF=300); PHENCYCLIDINE,URINE NEGATIVE ng/ml (CUTOFF=25); URINE AMPHETAMINES NEGATIVE ng/ml (CUTOFF=500); URINE BARBITURATES NEGATIVE ng/ml (CUTOFF=200); URINE BENZODIAZEPINES NEGATIVE ng/ml (CUTOFF=200)
--- NOTE | 2019-03-17 21:02 | HP ---
Admitting History and Physical - Primary Care Physician PCP: Silvana Mueller - Admission History of Present Illness: 19 y/o F hx of cyclic vomiting, polysubstance abuse (cocaine, heroin,marijuana) , depression, anxiety, bipolar disorder presents with abdominal pain, nausea and vomiting. Pt is a bounce back from yesterday for the same complaint. Pt. reports epigastric pain that began yesterday night after discharge yesterday. Unable to characterize the pain at this time . Has had multiple episodes of non- bilious bloody emesis. She had 2 episodes of emesis here in the ED which were non-bloody. Of note, patient is a frequent flyer for the same complaint and has tested positive for marijuana on last visit. Pt states that she is depressed and wants to harm herself. she denies an active plan, or homicidal ideation. Pt has spent 3 weeks at [facility] for depression and suicidal ideation in the past. She denies, fevers, chills, bloody/tarry stools. - Past Medical History ...LMP: 04/12/18 - Smoking History Smoking history: Former smoker Have you smoked in the past 12 months: Yes Aproximately how many cigarettes per day: 5 - Alcohol/Substance Use Hx Alcohol Use: No Home Medications - Allergies Allergies/Adverse Reactions: Allergies Allergy/AdvReac Type Severity Reaction Status Date / Time No Known Allergies Allergy Verified 03/17/19 12:48 - Home Medications Home Medications: Ambulatory Orders Famotidine [Pepcid] 40 mg PO DAILY 30 Days #30 tablet 03/16/19 Ondansetron HCl [Zofran] 4 mg PO TID PRN #10 tablet 03/16/19 Seroquel 100 mg PO HS 03/18/19 Physical Examination Vital Signs: Vital Signs Temperature 97.6 F 03/17/19 12:45 Pulse Rate 83 03/17/19 12:45 Respiratory Rate 16 03/17/19 12:45 Blood Pressure 148/81 03/17/19 12:45 O2 Sat by Pulse Oximetry (%) 100 03/17/19 12:45 Constitutional: Yes: Anxious HENT: Yes: Atraumatic Neck: Yes: Supple Cardiovascular: Yes: Regular Rate and Rhythm Respiratory: Yes: CTA Bilaterally Gastrointestinal: Yes: Normal Bowel Sounds Extremities: Yes: WNL Neurological: Yes: Alert, Oriented Labs: CBC, BMP 03/17/19 13:35 03/17/19 13:35 Problem List - Problems (1) Abdominal pain Assessment/Plan: better now ct scan..no acute pathology Code(s): R10.9 - UNSPECIFIED ABDOMINAL PAIN (2) Adverse effect of cannabis Code(s): T40.7X5A - ADVERSE EFFECT OF CANNABIS (DERIVATIVES), INITIAL ENCOUNTER (3) Cannabis abuse, continuous Code(s): F12.10 - CANNABIS ABUSE, UNCOMPLICATED (4) Chronic abdominal pain Code(s): R10.9 - UNSPECIFIED ABDOMINAL PAIN; G89.29 - OTHER CHRONIC PAIN (5) Cyclical vomiting Code(s): G43.A0 - CYCLICAL VOMITING, IN MIGRAINE, NOT INTRACTABLE Assessment/Plan Laboratory Tests 03/17/19 03/17/19 03/17/19 13:35 13:35 13:35 WBC 27.0 H RBC 4.11 Hgb 12.6 Hct 37.1 MCV 90.2 MCH 30.7 MCHC 34.1 RDW 13.3 Plt Count 321 MPV 8.7 Absolute Neuts (auto) 23.3 H Neutrophils % 86.4 H Neutrophils % (Manual) 87.4 H Band Neutrophils % 0.0 Lymphocytes % 7.3 L D Lymphocytes % (Manual) 7.2 L D Monocytes % 5.9 Monocytes % (Manual) 5 Eosinophils % 0.0 D Eosinophils % (Manual) 0.0 Basophils % 0.4 Basophils % (Manual) 0.0 Myelocytes % (Man) 0 Promyelocytes % (Man) 0 Blast Cells % (Manual) 0 Nucleated RBC % 0 Metamyelocytes 0 Hypochromia 0 Platelet Estimate Normal Polychromasia 0 Poikilocytosis 0 Anisocytosis 0 Microcytosis 0 Macrocytosis 0 Sodium 132 L Potassium 3.5 Chloride 100 Carbon Dioxide 22 Anion Gap 10 BUN 17.3 Creatinine 0.8 Est GFR (CKD-EPI)AfAm 123.01 Est GFR (CKD-EPI)NonAf 106.13 Random Glucose 87 Calcium 9.4 Phosphorus 3.1 Magnesium 1.8 Total Bilirubin 0.6 AST 46 H ALT 28 Alkaline Phosphatase 94 Creatine Kinase 1707 H Creatine Kinase Index 0.5 CK-MB (CK-2) 9.5 H Troponin I 0.08 H Total Protein 7.8 Albumin 4.3 Lipase 53 L Serum , Qual Urine Color Urine Appearance Urine pH Ur Specific [place] Urine Protein Urine Glucose (UA) Urine Ketones Urine Blood Urine Nitrite Urine Bilirubin Urine Urobilinogen Ur Leukocyte Esterase Urine WBC (Auto) Urine RBC (Auto) Urine Casts (Auto) U Epithel Cells (Auto) Urine Bacteria (Auto) Salicylates < 1.7 L Opiates Screen Methadone Screen Acetaminophen <2.0 Barbiturate Screen Phencyclidine Screen Ur Amphetamines Screen MDMA (Ecstasy) Screen Benzodiazepines Screen Cocaine Screen U Marijuana (THC) Screen 03/17/19 03/17/19 03/17/19 13:35 15:16 16:55 WBC RBC Hgb Hct MCV MCH MCHC RDW Plt Count MPV Absolute Neuts (auto) Neutrophils % Neutrophils % (Manual) Band Neutrophils % Lymphocytes % Lymphocytes % (Manual) Monocytes % Monocytes % (Manual) Eosinophils % Eosinophils % (Manual) Basophils % Basophils % (Manual) Myelocytes % (Man) Promyelocytes % (Man) Blast Cells % (Manual) Nucleated RBC % Metamyelocytes Hypochromia Platelet Estimate Polychromasia Poikilocytosis Anisocytosis Microcytosis Macrocytosis Sodium Potassium Chloride Carbon Dioxide Anion Gap BUN Creatinine Est GFR (CKD-EPI)AfAm Est GFR (CKD-EPI)NonAf Random Glucose Calcium Phosphorus Magnesium Total Bilirubin AST ALT Alkaline Phosphatase Creatine Kinase Creatine Kinase Index CK-MB (CK-2) Troponin I 0.08 H Total Protein Albumin Lipase Serum , Qual Negative Urine Color Urine Appearance Urine pH Ur Specific [place] Urine Protein Urine Glucose (UA) Urine Ketones Urine Blood Urine Nitrite Urine Bilirubin Urine Urobilinogen Ur Leukocyte Esterase Urine WBC (Auto) Urine RBC (Auto) Urine Casts (Auto) U Epithel Cells (Auto) Urine Bacteria (Auto) Salicylates Opiates Screen Negative Methadone Screen Negative Acetaminophen Barbiturate Screen Negative Phencyclidine Screen Negative Ur Amphetamines Screen Negative MDMA (Ecstasy) Screen Negative Benzodiazepines Screen Negative Cocaine Screen Negative U Marijuana (THC) Screen Positive A* 03/17/19 16:55 WBC RBC Hgb Hct MCV MCH MCHC RDW Plt Count MPV Absolute Neuts (auto) Neutrophils % Neutrophils % (Manual) Band Neutrophils % Lymphocytes % Lymphocytes % (Manual) Monocytes % Monocytes % (Manual) Eosinophils % Eosinophils % (Manual) Basophils % Basophils % (Manual) Myelocytes % (Man) Promyelocytes % (Man) Blast Cells % (Manual) Nucleated RBC % Metamyelocytes Hypochromia Platelet Estimate Polychromasia Poikilocytosis Anisocytosis Microcytosis Macrocytosis Sodium Potassium Chloride Carbon Dioxide Anion Gap BUN Creatinine Est GFR (CKD-EPI)AfAm Est GFR (CKD-EPI)NonAf Random Glucose Calcium Phosphorus Magnesium Total Bilirubin AST ALT Alkaline Phosphatase Creatine Kinase Creatine Kinase Index CK-MB (CK-2) Troponin I Total Protein Albumin Lipase Serum , Qual Urine Color Yellow Urine Appearance Clear Urine pH 5.5 Ur Specific [place] 1.035 Urine Protein 1+ H Urine Glucose (UA) Negative Urine Ketones 3+ H Urine Blood Negative Urine Nitrite Negative Urine Bilirubin Negative Urine Urobilinogen 0.2 Ur Leukocyte Esterase Negative Urine WBC (Auto) 1 Urine RBC (Auto) 1 Urine Casts (Auto) 10 U Epithel Cells (Auto) 4.0 Urine Bacteria (Auto) 9.6 Salicylates Opiates Screen Methadone Screen Acetaminophen Barbiturate Screen Phencyclidine Screen Ur Amphetamines Screen MDMA (Ecstasy) Screen Benzodiazepines Screen Cocaine Screen U Marijuana (THC) Screen Active Medications Generic Name Dose Route Start Last Admin Trade Name Freq PRN Reason Stop Dose Admin Al Hydroxide/Mg Hydroxide 30 ml 03/18/19 05:46 03/18/19 13:09 Mylanta Oral Suspension - PO 30 ml Q6HPO PRN Administration NAUSEA AND/OR VOMITING Active Medications Generic Name Dose Route Start Last Admin Trade Name Freq PRN Reason Stop Dose Admin Al Hydroxide/Mg Hydroxide 30 ml 03/18/19 05:46 03/19/19 05:31 Mylanta Oral Suspension - PO 30 ml Q6HPO PRN Administration NAUSEA AND/OR VOMITING Benzocaine/Menthol 1 each 03/18/19 23:32 03/19/19 07:29 Cepacol Lozenge - MM 1 each Q6H PRN Administration SORE THROAT Sodium Chloride 1,000 mls @ 100 mls/hr 03/18/19 16:45 03/19/19 07:28 Normal Saline - IV 100 mls/hr ASDIR JAIME Administration Lorazepam 1 mg 03/19/19 11:04 Ativan Injection - IM Q6H PRN ANXIETY
[2019-03-18 00:48] VITALS: BMI 28.8
[2019-03-18] MEDS ORDERED: LORazepam 2 MG/ML SDV VIAL IM ONE ×2 (02:08→09:00)
[2019-03-18] MEDS: MAG HYDROX/AL HYDROX/SIMETH 30 ML UNIT-DOSE CUP PO PRN ×3 (05:59→22:38)
[2019-03-18] MEDS ORDERED: LORazepam 2 MG/ML SDV VIAL ONE (09:29)
--- NOTE | 2019-03-18 09:29 | RAPID ---
Physical Examination Vital Signs: Vital Signs Temperature 97.8 F 03/18/19 05:00 Pulse Rate 68 03/18/19 05:00 Respiratory Rate 18 03/18/19 05:00 Blood Pressure 117/87 03/18/19 05:00 O2 Sat by Pulse Oximetry (%) 100 03/17/19 21:00 Constitutional: Yes: Severe Distress Labs: CBC, BMP 03/17/19 13:35 03/17/19 13:35 Rapid Response - Rapid Response Assessment: Rapid response was called at 09:20 for an acutely distressed patient. Upon initial assesment, pt was found to be in acute distress screaming in pain, stating she "wants to take a shower because it makes it better." PE: VS: 130/93, 96%Sao2, 106 Pt refusing physical exam Plan: Pt admitted 03/17 for diffuse abdominal pain and hyperemesis. Pt has a significant pmhx of bipolar depression, polysubstance abuse. UTOX positive for marijuana. CT abd pelvis- no acute pathology wbc- 27 - likely acute distress is due to anxiety coupled with the nausea vs drug seeking coupled with pprimary dx of hyperemesis gravidarum. Ativan 1mg IVP one time dose given to help pt's anxiety. 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 Mueller who was made aware of pt's status and discussed patient's possibility of being placed on detox protocol.
[2019-03-18] MEDS ORDERED: LORazepam 2 MG/ML SDV VIAL IVPUSH ONE (09:30)
--- NOTE | 2019-03-18 12:43 | EKG ---
Test Reason : Blood Pressure : / mmHG Vent. Rate : 075 BPM Atrial Rate : 075 BPM P-R Int : 134 ms QRS Dur : 078 ms QT Int : 382 ms P-R-T Axes : 055 048 041 degrees QTc Int : 426 ms SINUS RHYTHM WITH MARKED SINUS ARRHYTHMIA OTHERWISE NORMAL ECG WHEN COMPARED WITH ECG OF 16-MAR-2019 15:05, T WAVE AMPLITUDE HAS INCREASED IN LATERAL LEADS Confirmed by MD Clarence, Kei ([id number]) on 03/18/2019 12:43:05 PM Referred By: Confirmed By:Kei Lima MD
--- NOTE | 2019-03-18 12:57 | CON.CARD ---
Consult Consult Specialty:: Cardiology Referred by:: Dr. Mueller Reason for Consultation:: Cardiac evaluation - History of Present Illness Chief Complaint: Epigastric pain History of Present Illness: Patient is a 19 year old female with underlying history of polysubstance abuse with cocaine, heroin and marijuana, in addition to depression, anxiety and bipolar disorder who presented with abdominal pain, nausea and vomiting. She complained of epigastric pain and non bilious non bloody emesis. She denies chest pain, SOB or palpitations. She denies fever or chills. She denies headache or lightheadedness. Patient has been to [facility] for depression and suicidal ideation in the past. Troponin was slightly elevated. - History Source History Provided By: Patient, Medical Record Limitations to Obtaining History: Clinical Condition - Past Medical History ...LMP: 04/12/18 - Alcohol/Substance Use Hx Alcohol Use: No History of Substance Use: reports: Cocaine, Heroin, Marijuana - Smoking History Smoking history: Former smoker Have you smoked in the past 12 months: Yes Aproximately how many cigarettes per day: 5 - Social History Usual Living Arrangement: With Parent Home Medications - Allergies Allergies/Adverse Reactions: Allergies Allergy/AdvReac Type Severity Reaction Status Date / Time No Known Allergies Allergy Verified 03/17/19 12:48 - Home Medications Home Medications: Ambulatory Orders Famotidine [Pepcid] 40 mg PO DAILY 30 Days #30 tablet 03/16/19 Ondansetron HCl [Zofran] 4 mg PO TID PRN #10 tablet 03/16/19 Seroquel 100 mg PO HS 03/18/19 Family Medical History Family History: Denies Review of Systems - Review of Systems Constitutional: denies: Chills, Fever Cardiovascular: denies: Chest Pain, Palpitations, Shortness of Breath Gastrointestinal: reports: Abdominal Pain, Nausea, Vomiting. denies: Constipation, Diarrhea, Melena, Rectal Bleeding Genitourinary: denies: Dysuria, Hematuria Neurological: denies: Dizziness, Headache, Seizure, Syncope Vital Signs: Vital Signs Temperature 97 F L 03/18/19 09:20 Pulse Rate 94 H 03/18/19 09:20 Respiratory Rate 18 03/18/19 09:20 Blood Pressure 130/93 03/18/19 09:20 O2 Sat by Pulse Oximetry (%) 100 03/17/19 21:00 HENT: Yes: Atraumatic Neck: Yes: Supple Respiratory: Yes: CTA Bilaterally Gastrointestinal: Yes: Normal Bowel Sounds, Soft. No: Tenderness Cardiovascular: Yes: Regular Rate and Rhythm JVD: No Carotid Bruit: No PMI: Non-Displaced Heart Sounds: Yes: S1, S2. No: Gallop Murmur: No: Systolic Murmur, Diastolic Murmur Edema: No - Other Data Labs, Other Data: CBC, BMP 03/17/19 13:35 03/17/19 13:35 Troponin, BNP 03/17/19 03/17/19 03/17/19 13:35 15:16 22:50 Troponin I 0.08 H 0.08 H 0.05 Sinus rhythm with sinus arrhythmia Imaging - Results Cat Scan: Report Reviewed (Abdominal CT noted) EKG: Report Reviewed Problem List - Problems (1) Abdominal pain Code(s): R10.9 - UNSPECIFIED ABDOMINAL PAIN Qualifiers: Abdominal location: epigastric Qualified Code(s): R10.13 - Epigastric pain (2) Cannabis abuse, continuous Code(s): F12.10 - CANNABIS ABUSE, UNCOMPLICATED (3) Substance abuse Code(s): F19.10 - OTHER PSYCHOACTIVE SUBSTANCE ABUSE, UNCOMPLICATED (4) Bipolar disorder Code(s): F31.9 - BIPOLAR DISORDER, UNSPECIFIED (5) Cocaine dependence Code(s): F14.20 - COCAINE DEPENDENCE, UNCOMPLICATED Qualifiers: Substance use status: uncomplicated Qualified Code(s): F14.20 - Cocaine dependence, uncomplicated (6) Opioid dependence Code(s): F11.20 - OPIOID DEPENDENCE, UNCOMPLICATED Qualifiers: (7) Substance induced mood disorder Code(s): F19.94 - OTH PSYCHOACTIVE SUBSTANCE USE, UNSP W MOOD DISORDER Assessment/Plan 1. Demand ischemia 2. Polysubstance abuse (Cocaine, Heroin, Marijuana) 3. Depression and anxiety and Bipolar disorder PLAN: 1. No specific cardiac therapy needed at this time 2. Troponin downward trending 3. Echocardiography to assess LV/RV and valvular function 4. Detox and Psychiatry eval Further plans are to follow Skyler Almonte MD
--- NOTE | 2019-03-18 16:05 | CON.PSY ---
Psychiatry Consult Chief Complaint: i want to swleep, i need my rest. i dont want to kill myself. i n3eed rest. patient with a long history of Mixed substance abuse admitted with Abdominla pain. Symptoms: reports: Irritability - Previous Psychiatric Treatment Outpatient: None Inpatient: None - Previous Substance Abuse Treatment Outpatient: None Inpatient: None - Reason for Previous Treatment Reason for Previous Treatment: Cocaine, Other Drugs - Current Medications Current Medications: Active Medications Al Hydroxide/Mg Hydroxide (Mylanta Oral Suspension -) 30 ml PO Q6HPO PRN PRN Reason: NAUSEA AND/OR VOMITING Last Admin: 03/18/19 13:09 Dose: 30 ml - Allergies Allergies: Allergies Allergy/AdvReac Type Severity Reaction Status Date / Time No Known Allergies Allergy Verified 03/17/19 12:48 - Current Living Status Usual Living Arrangement: Alone - Current Mental Status Evaluation Appearance: Disheveled Attitude: Guarded - Affect Affect: Constrictive - Mood Mood: Angry - Speech/Language Expressive: Coherent - Psychomotor Activity Psychomotor Activity: Normal - Thought Process Thought Process: Intact - Thought Content Hallucinations: Absent Delusions: Absent - Self Perception Self Perception: No Impairment - Cognition Attention: Alert Orientation: Time Memory, Short Term: 3/3 Memory, Remote with Promptin/3 - Concentration Serial Sevens Intact: No Simple Calculations Intact: No - Abstraction Proverb Interpretation: Intact Judgement: Minimally Impaired - Insight Insight: Intact - Impulse Control Impulse Control: Minimally Impaired - Suicidal Ideation Suicidal Ideation: No - Homicidal Ideation Homicidal Ideation: No Assessment/Plan 1) d/c 1:1. 2) Patient is not suicidal at this time. 3) she can sign out AMA. 4) No Psych meds needed. History of Substance abuse. 5) sh3e can take a shower ....
--- NOTE | 2019-03-18 16:44 | PN ---
Progress Note, Physician - Current Medication List Current Medications: Active Medications Al Hydroxide/Mg Hydroxide (Mylanta Oral Suspension -) 30 ml PO Q6HPO PRN PRN Reason: NAUSEA AND/OR VOMITING Last Admin: 03/18/19 13:09 Dose: 30 ml - Objective Vital Signs: Vital Signs Temperature 98.2 F 03/18/19 13:00 Pulse Rate 92 H 03/18/19 13:00 Respiratory Rate 18 03/18/19 13:00 Blood Pressure 155/95 03/18/19 13:00 O2 Sat by Pulse Oximetry (%) 97 03/18/19 09:20 Constitutional: Yes: No Distress HENT: Yes: Atraumatic Neck: Yes: Supple Cardiovascular: Yes: Regular Rate and Rhythm Respiratory: Yes: CTA Bilaterally Gastrointestinal: Yes: Tenderness (mild epigastric) Extremities: Yes: WNL Edema: No Neurological: Yes: Alert, Oriented Labs: CBC, BMP 03/17/19 13:35 03/17/19 13:35 Problem List - Problems (1) Abdominal pain Assessment/Plan: better now ct scan..no acute pathology will order us gb to r/o gall stones Code(s): R10.9 - UNSPECIFIED ABDOMINAL PAIN (2) Adverse effect of cannabis Code(s): T40.7X5A - ADVERSE EFFECT OF CANNABIS (DERIVATIVES), INITIAL ENCOUNTER (3) Cannabis abuse, continuous Assessment/Plan: will do detox consult Code(s): F12.10 - CANNABIS ABUSE, UNCOMPLICATED (4) Chronic abdominal pain Code(s): R10.9 - UNSPECIFIED ABDOMINAL PAIN; G89.29 - OTHER CHRONIC PAIN (5) Cyclical vomiting Code(s): G43.A0 - CYCLICAL VOMITING, IN MIGRAINE, NOT INTRACTABLE
[2019-03-18] MEDS: SODIUM CHLORIDE 1,000 ML IV SCH (20:00)
[2019-03-19] MEDS: BENZOCAINE/MENTH/CETYLPYRD CL 1 EACH LOZENGE MM PRN ×2 (01:35→07:29)
[2019-03-19] MEDS: MAG HYDROX/AL HYDROX/SIMETH 30 ML UNIT-DOSE CUP PO PRN (05:31)
[2019-03-19] MEDS: SODIUM CHLORIDE 1,000 ML IV SCH (07:28)
[2019-03-19] MEDS ORDERED: KETOROLAC TROMETHAMINE 15 MG/ML VIAL IVPUSH ONE (09:12)
--- NOTE | 2019-03-19 09:12 | RAPID ---
Physical Examination Vital Signs: Vital Signs Temperature 99.3 F 03/19/19 06:00 Pulse Rate 100 H 03/19/19 06:00 Respiratory Rate 18 03/19/19 06:00 Blood Pressure 114/72 03/19/19 06:00 O2 Sat by Pulse Oximetry (%) 97 03/18/19 21:00 Vitals difficult to obtain as patient is extremely agitated, shaking, and calling out for "Mommy" BP 102/41 Findings/Remarks: Rapid Response called for complaint of severe burning epigastric pain, screaming out for "Mommy". Constitutional: Yes: Anxious, Moderate Distress Eyes: Yes: Conjunctiva Clear HENT: Yes: WNL Neck: Yes: Supple Cardiovascular: Yes: Regular Rate and Rhythm Respiratory: Yes: CTA Bilaterally Gastrointestinal: Yes: Soft, Tenderness (diffusely tender throughout abd) Edema: No Neurological: Yes: Alert, Other (repetitive shaking of hips) Labs: CBC, BMP 03/17/19 13:35 03/17/19 13:35 Rapid Response - Rapid Response Assessment: has unspecified abdominal pain. CT A/P from 03/17 w/o acute pathology. Outcome: - ordered Ativan, pantoprazole 40mg IVP, ketorolac 15mg IVP - Labs: CBC, CMP, troponin - EKG --pending, to be done when patient stops shaking - rec [facility] consult(Isidra Abrams)
[2019-03-19] MEDS ORDERED: PANTOPRAZOLE SODIUM 40 MG VIAL IVPUSH ONE (09:15)
[2019-03-19] MEDS ORDERED: LORazepam 2 MG/ML SDV VIAL IVPUSH ONE (09:15)
--- NOTE | 2019-03-19 10:16 | PN ---
Progress Note, Physician History of Present Illness: Agitated earlier in AM, denies chest pain or dyspnea. - Current Medication List Current Medications: Active Medications Al Hydroxide/Mg Hydroxide (Mylanta Oral Suspension -) 30 ml PO Q6HPO PRN PRN Reason: NAUSEA AND/OR VOMITING Last Admin: 03/19/19 05:31 Dose: 30 ml Benzocaine/Menthol (Cepacol Lozenge -) 1 each MM Q6H PRN PRN Reason: SORE THROAT Last Admin: 03/19/19 07:29 Dose: 1 each Sodium Chloride (Normal Saline -) 1,000 mls @ 100 mls/hr IV ASDIR JAIME Last Admin: 03/19/19 07:28 Dose: 100 mls/hr - Objective Vital Signs: Vital Signs Temperature 99.4 F 03/19/19 09:00 Pulse Rate 220 H 03/19/19 09:15 Respiratory Rate 20 03/19/19 09:15 Blood Pressure 102/41 L 03/19/19 09:15 O2 Sat by Pulse Oximetry (%) 97 03/18/19 21:00 Constitutional: Yes: No Distress, Calm, Thin Neck: Yes: Supple Cardiovascular: Yes: Regular Rate and Rhythm Respiratory: Yes: Regular, CTA Bilaterally Gastrointestinal: Yes: Normal Bowel Sounds, Soft Edema: No Labs: CBC, BMP 03/17/19 13:35 03/17/19 13:35 Problem List - Problems (1) Substance abuse Code(s): F19.10 - OTHER PSYCHOACTIVE SUBSTANCE ABUSE, UNCOMPLICATED (2) Substance induced mood disorder Code(s): F19.94 - OTH PSYCHOACTIVE SUBSTANCE USE, UNSP W MOOD DISORDER (3) Demand ischemia Code(s): I24.8 - OTHER FORMS OF ACUTE ISCHEMIC HEART DISEASE Assessment/Plan 1. Demand ischemia 2. Polysubstance abuse (Cocaine, Heroin, Marijuana) 3. Depression and anxiety and Bipolar disorder PLAN: 1. No specific cardiac therapy needed at this time 2. Troponin downward trending 3. Echocardiography to assess LV/RV and valvular function 4. Detox and Psychiatry eval appreciated
[2019-03-19] MEDS ORDERED: LORazepam 2 MG/ML SDV VIAL IM PRN (11:04)
--- NOTE | 2019-03-19 11:57 | PN ---
[facility] Progress Note (SOAP) Subjective: pt referred for consult, reports cocaine use - 3 days ago , cannabis use -daily , denies other illicits . Pt reports feeling agitated and depressed and requests to speak with psychiatry . Active Medications Al Hydroxide/Mg Hydroxide (Mylanta Oral Suspension -) 30 ml PO Q6HPO PRN PRN Reason: NAUSEA AND/OR VOMITING Last Admin: 03/19/19 05:31 Dose: 30 ml Benzocaine/Menthol (Cepacol Lozenge -) 1 each MM Q6H PRN PRN Reason: SORE THROAT Last Admin: 03/19/19 07:29 Dose: 1 each Sodium Chloride (Normal Saline -) 1,000 mls @ 100 mls/hr IV ASDIR JAIME Last Admin: 03/19/19 07:28 Dose: 100 mls/hr Lorazepam (Ativan Injection -) 1 mg IM Q6H PRN PRN Reason: ANXIETY Objective: 03/19/19 11:56 Vital Signs - 24 hr 03/18/19 03/18/19 03/18/19 13:00 18:00 21:00 Temperature 98.2 F 98.2 F Pulse Rate 92 H 85 Respiratory 18 18 Rate Blood Pressure 155/95 103/47 L O2 Sat by Pulse 97 Oximetry (%) 03/19/19 03/19/19 03/19/19 06:00 09:00 09:15 Temperature 99.3 F 99.4 F Pulse Rate 100 H 100 H 220 H Respiratory 18 20 20 Rate Blood Pressure 114/72 96/73 102/41 L O2 Sat by Pulse Oximetry (%) anxious, agitated, AAO x 3 Assessment: Cannabis dependence Cocaine use, episodic 03/19/19 11:56 Plan: psychiatric evaluation - pt reports feeling depressed and requesting to speak with psychiatry . When medically cleared, suggest referral to outpt program.
[2019-03-19 12:17] LABS: HEMATOCRIT 35.2 % (32.4-45.2); HEMOGLOBIN 11.8 GM/dL (10.7-15.3); MCH 31.2 pg (25.7-33.7); MCHC 33.6 g/dl (32.0-36.0); MEAN CELL VOLUME 92.8 fl (80-96); MEAN PLT VOLUME 8.8 fl (7.5-11.1); PLATELET COUNT 282 K/MM3 (134-434); RDW 13.3 % (11.6-15.6); WHITE BLOOD COUNT 14.2 K/mm3 (4.0-10.0)
[2019-03-19 12:53] LABS: ALBUMIN 3.4 g/dl (3.4-5.0); ALK PHOS 79 U/L (45-117); ANION GAP 8 MMOL/L (8-16); BILIRUBIN,TOTAL 0.5 mg/dL (0.2-1); BLOOD UREA NITROGEN 6.6 mg/dL (7-18); CALCIUM 8.3 mg/dL (8.5-10.1); CHLORIDE 104 mmol/L (98-107); CO2 23 mmol/L (21-32); CREATININE 0.8 mg/dL (0.55-1.3); GLUCOSE,RANDOM 80 mg/dL (74-106); POTASSIUM 3.6 mmol/L (3.5-5.1); SGOT/AST 44 U/L (15-37); SGPT/ALT 33 U/L (13-61); SODIUM 135 mmol/L (136-145); TOT PROT 6.3 g/dl (6.4-8.2)
--- NOTE | 2019-03-19 14:50 | EKG ---
Test Reason : Blood Pressure : / mmHG Vent. Rate : 062 BPM Atrial Rate : 062 BPM P-R Int : 148 ms QRS Dur : 082 ms QT Int : 438 ms P-R-T Axes : 055 054 050 degrees QTc Int : 444 ms NORMAL SINUS RHYTHM WITH SINUS ARRHYTHMIA NORMAL ECG WHEN COMPARED WITH ECG OF 17-MAR-2019 14:14, NO SIGNIFICANT CHANGE WAS FOUND Confirmed by ROJELIO LAWSON, RUBY ([id number]) on 03/19/2019 2:50:22 PM Referred By: Bárbara BRANTLEY Confirmed By:RUBY SERRATO MD
[2019-03-19 16:13] VITALS: BP 142/79; PULSE 78; TEMP 98.8
--- NOTE | 2019-03-19 18:25 | DS ---
Physical Examination Vital Signs: Vital Signs Temperature 98.8 F 03/19/19 14:00 Pulse Rate 78 03/19/19 14:00 Respiratory Rate 20 03/19/19 14:00 Blood Pressure 142/79 03/19/19 14:00 O2 Sat by Pulse Oximetry (%) 99 03/19/19 09:00 Constitutional: Yes: No Distress HENT: Yes: Atraumatic Neck: Yes: Supple Cardiovascular: Yes: Regular Rate and Rhythm Respiratory: Yes: CTA Bilaterally Gastrointestinal: Yes: Normal Bowel Sounds Extremities: Yes: WNL Edema: No Neurological: Yes: Alert, Oriented Labs: CBC, BMP 03/19/19 11:30 03/19/19 11:30 Discharge Summary Problems reviewed: Yes Reason For Visit: LEUKOCYTOSIS Current Active Problems Demand ischemia (Acute) - Instructions - Home Medications Comprehensive Discharge Medication List: Ambulatory Orders Famotidine [Pepcid] 40 mg PO DAILY 30 Days #30 tablet 03/16/19 Ondansetron HCl [Zofran] 4 mg PO TID PRN #10 tablet 03/16/19 Seroquel 100 mg PO HS 03/18/19 dc home fu out patient rehab
== END 2019-03-19 18:25 | disposition home or self-care (01) | DRG 773 ==
LOC: JER 12:45 → JERBED 18:10 → J5S 20:36
PROVIDERS: ADMIT Internal Medicine; ATTEND Internal Medicine
DX: F19.94 Other psychoactive substance use, unspecified with psychoactive substance-induced mood disorder (principal); I24.8 Other forms of acute ischemic heart disease; E87.1 Hypo-osmolality and hyponatremia; F14.10 Cocaine abuse, uncomplicated; F11.10 Opioid abuse, uncomplicated; F31.9 Bipolar disorder, unspecified; F12.20 Cannabis dependence, uncomplicated; F41.9 Anxiety disorder, unspecified
CPT/HCPCS: 36415; 74177-TC; 76705-TC; 80053; 80307; 81003; 82550; 82553; 83690; 83735; 84100; 84484; 84703; 85025; 85027; 87040; 87086; 93005; 93010; 99283-25; J7030

== ENCOUNTER 2019-09-27 03:00 | Inpatient (IN) | payer OTHER ==
[2019-09-27] MEDS ORDERED: MAGNESIUM 4GM/H20 - 4 GM/100 ML IVPB IVPB ONE (04:03)
[2019-09-27] MEDS ORDERED: BETAMET ACET/BETAMET NA PH 30 MG/5 ML VIAL ONE (04:03)
[2019-09-27 04:09] LABS: COCAINE, UR NEGATIVE ng/ml (CUTOFF=300); METHADONE, UR NEGATIVE ng/ml (CUTOFF=300); OPIATES, URI NEGATIVE ng/ml (CUTOFF=300); PHENCYCLIDINE,URINE NEGATIVE ng/ml (CUTOFF=25); URINE AMPHETAMINES NEGATIVE ng/ml (CUTOFF=500); URINE BARBITURATES NEGATIVE ng/ml (CUTOFF=200); URINE BENZODIAZEPINES NEGATIVE ng/ml (CUTOFF=200)
[2019-09-27] MEDS ORDERED: BETAMET ACET/BETAMET NA PH 30 MG/5 ML VIAL IM ONE (04:16)
[2019-09-27] MEDS ORDERED: BUTORPHANOL TARTRATE 1 MG/ML VIAL IVPB ONE (04:17)
[2019-09-27 04:27] LABS: BASO % 0.1 % (0-2.0); EOS % 0.1 % (0-4.5); HEMATOCRIT 28.6 % (32.4-45.2); HEMOGLOBIN 9.6 GM/dL (10.7-15.3); LYMPH % 5.6 % (8-40); MCH 31.9 pg (25.7-33.7); MCHC 33.6 g/dl (32.0-36.0); MEAN PLT VOLUME 9.6 fl (7.5-11.1); MONO % 4.7 % (3.8-10.2); NEUT % 89.5 % (42.8-82.8); PLATELET COUNT 208 K/MM3 (134-434); RBC 3.01 M/mm3 (3.60-5.2); RDW 13.2 % (11.6-15.6); WHITE BLOOD COUNT 22.8 K/mm3 (4.0-10.0)
--- NOTE | 2019-09-27 04:28 | HP ---
Past Medical History - Primary Care Physician PCP:: unknown - Admission Chief Complaint: abd pain History of Present Illness: bipolar, anxiety History Source: Patient Limitations to Obtaining History: No Limitations - Past Medical History [employer]: No: Alzheimer's, CVA, Dementia, Migraine, Multiple Sclerosis, Peripheral Neuropathy, Parkinson's, Seizure, Syncope, TIA, Vertigo, Other Cardiovascular: No: AFIB, Aneurysm, Aortic Insufficiency, Aortic Stenosis, CAD, CHF, Deep Vein Thrombosis, HTN, Hyperlipdemia, [place], Mitral Insufficiency, Mitral Stenosis, Murmur, Pulmonary Hypertension, Other Pulmonary: No: Asthma, Bronchitis, Cancer, COPD, O2 Dependent, Pneumonia, Previously Intubated, Pulmonary Embolus, Pulmonary Fibrosis, Sleep Apnea, Other Gastrointestinal: No: Ascites, Cancer, Constipation, Crohn's Disease, Diverticulitis, Diverticulosis, Esophageal Varices, Gastritis, GERD, GI Bleed, Hemorrhoids, Hiatal Hernia, Inflamatory Bowel Disease, Irritable Bowel Disease, Pancreatitis, Peptic Ulcer Disease, Ulcerative Colitis, Other Hepatobiliary: No: Cirrhosis, Cholelithiasis, Cholecystitis, Choledocholithiasis, Hepatitis A, Hepatitis B, Hepatitis C, Other Renal/: No: Renal Failure, Renal Inusuff, BPH, Cancer, Hematuria, Hemodialysis , Neurogenic Bladder, Renal Calculi, UTI, Other Reproductive: No: Ectopic , Endometriosis, Fibroids, PID, Polycystic Ovary Syndrome, Postmenopausal, Other ...Para: 0 ...EDC by Dates: 12/19/19 Heme/Onc: No: Anemia, B12 Deficiency, Bleeding Disorder, Cancer, Current Chemotherapy, Current Radiation Therapy, Hemochromatosis, Hypercoaguable State, Myeloproliferative Synd, Sickle Cell Disease, Sickle Cell Trait, Thrombocytopenia, Other Infectious Disease: No: AIDS, C-Diff, Herpes Zoster, HIV, MRSA, STD's, Tuberculosis, VREF, Other Psych: Yes: Anxiety, Bipolar, Depression Musculoskeletal: No: Bursitis, Chronic low back pain, Hemiparesis, Hemiplegia, Osteoarthritis, Paraplegia, Other Rheumatology: No: Fibromyalgia, Gout, Lupus, Rheumatoid Arthritis, Sarcoidosis, Vasculitis, Other ENT: No: Allergic Rhinitis, Sinusitis, Other Endocrine: No: Jaylon's Disease, Delphine's Disease, Diabetes Insipidus, Diabetes Mellitus, Hyperparathyroidism, Hyperthyroidism, Hypothyroidism, Osteopenia, SIADH, Other Dermatology: No: Basal Cell, Cellulitis, Eczema, Melanoma, Psoriasis, Squamous Cell, Other - Past Surgical History Past Surgical History: No: None, AAA Repair, AICD, Amputation, Appendectomy, Arthrosocopy, AV Fistula/Graft, Bariatric Surgery, Breast Biopsy, Bypass, CABG, Carotid Endarterectomy, Cataract Removal, Cholecystectomy, Colectomy, Colonoscopy, Colostomy, Craniotomy, , Cystectomy, Hernia Repair, Hysterectomy, Ileal Conduit, Ileosotomy, Joint Replacement, Kidney Transplant, Laminectomy, Liver Transplant, Mastectomy, Nephrectomy, Oopherectomy, Orchiectomy, Permanent Pacemaker, Prostatectomy, Splenectomy, Stent, Thoracotomy, TURP, Tonsillectomy, Tubal Ligation, Upper Endoscopy, Valve Replacement, Vasectomy, Vein Stripping/Ligation Hx Myomectomy: No Hx Transabdominal Cerclage: No - Advance Directives Advance Directives: Yes: Living Will - Smoking History Smoking history: Current every day smoker Have you smoked in the past 12 months: Yes Aproximately how many cigarettes per day: 5 - Alcohol/Substance Use Hx Alcohol Use: No History of Substance Use: reports: Cocaine, Heroin, Marijuana - Social History Usual Living Arrangement: Yes: Other Do you think of yourself as: Declined to answer ADL: Independent History of Recent Travel: No Home Medications - Allergies Allergies/Adverse Reactions: Allergies Allergy/AdvReac Type Severity Reaction Status Date / Time No Known Allergies Allergy Verified 09/27/19 03:52 - Home Medications Home Medications: Ambulatory Orders Famotidine [Pepcid] 40 mg PO DAILY 30 Days #30 tablet 03/16/19 Ondansetron HCl [Zofran] 4 mg PO TID PRN #10 tablet 03/16/19 Seroquel 100 mg PO HS 03/18/19 Family Medical History Family History: Denies Review of Systems - Review of Systems Constitutional: reports: No Symptoms Eyes: reports: No Symptoms HENT: reports: No Symptoms Neck: reports: No Symptoms Cardiovascular: reports: No Symptoms Respiratory: reports: No Symptoms Gastrointestinal: reports: No Symptoms Genitourinary: reports: No Symptoms Breasts: reports: No Symptoms Reported Musculoskeletal: reports: No Symptoms Integumentary: reports: No Symptoms Neurological: reports: No Symptoms Endocrine: reports: No Symptoms Hematology/Lymphatic: reports: No Symptoms Psychiatric: reports: Anxiety, Depression, Suicidal Pain Intensity: 9 Physical Exam - Maternity Constitutional: Yes: Well Nourished, No Distress, Calm Eyes: Yes: WNL, Conjunctiva Clear, EOM Intact HENT: Yes: WNL, Atraumatic, Normocephalic Neck: Yes: WNL, Supple, Trachea Midline Cardiovascular: Yes: WNL, Regular Rate and Rhythm Lungs: Clear to auscultation Breast(s): Yes: WNL - Abdominal Exam/OB Number of Fetuses: Multiple Presentation: Vertex, Breech Contractions: Yes Regularity: Regular Intensity: Moderate Monitor Mode: External Heart Rate (range): 150 Heart Rate Location: [facility] [place] Accelerations: Uniform Decelerations: None - Vaginal Exam/OB Vaginal Bleeding: Light Dilatation (cm): 1/2 Effacement (%): 70 Amniotic Membrane Status: Intact Presentation: Armon Breech - Physical Exam Musculoskeletal: Yes: WNL Extremities: Yes: WNL Edema: No Integumentary: Yes: WNL Deep Tendon Reflex Grade: Normal +2 ...Motor Strength: WNL Psychiatric: Yes: Agitated Hemorrhage Risk Assessment - Risk Factors Medium Risk Factors: Yes: None High Risk Factors: Yes: None Risk Score: 1 Risk Level: Medium Risk Assessment/Plan will stabalize with stadol, magnesium sulfate, and betamethasone, will try to transfer pt to [facility], pt is harshad, q 5 min, both fht with mod variability, no dceels, bedside sono done, fhr x2 presents, vertex and breech , will call [place] back
[2019-09-27 04:29] LABS: EPI CELLS 27 /uL (0-25.1); HYALINE CASTS 8 /uL (0-3.1); URINE APPEARANCE CLEAR; URINE BACTERIA 31 /uL (0-1359); URINE BILIRUBIN NEGATIVE (NEGATIVE); URINE COLOR YELLOW; URINE GLUCOSE (UA) NEGATIVE (NEGATIVE); URINE KETONE 3+ (NEGATIVE); URINE LEUK ESTERASE NEGATIVE (NEGATIVE); URINE NITRITE NEGATIVE (NEGATIVE); URINE PROTEIN 1+ (NEGATIVE); URINE RBC 26 /uL (0-23.9); URINE WBC 6 /uL (0-25.8)
[2019-09-27] MEDS ORDERED: MAGNESIUM 4GM/H20 - 4 GM/100 ML IVPB IVPB SCH (04:30)
[2019-09-27] MEDS ORDERED: DEXTROSE 5%-LACTATED RINGERS 1,000 ML IV SCH (04:30)
[2019-09-27] MEDS ORDERED: MAGNESIUM SULFATE 20GM/500ML - 20 GM/500 ML INFUS.BAG IVPB SCH (04:30)
[2019-09-27 04:35] LABS: INR 0.9 (0.83-1.09); PROTHROMBIN TIME (PATIENT) 10.6 SEC (9.7-13.0)
[2019-09-27 04:37] LABS: ACTIVATED PTT 26.2 SECONDS (25.2-36.5)
[2019-09-27] MEDS ORDERED: AMPICILLIN - 2 GM in SODIUM CHLORIDE 100 ML IVPB ONE (04:39)
[2019-09-27] MEDS ORDERED: AMPICILLIN SODIUM 2 GM VIAL ONE (04:40)
[2019-09-27] MEDS ORDERED: MAGNESIUM SULFATE 20GM/500ML - 20 GM/500 ML INFUS.BAG ONE (04:41)
[2019-09-27 04:45] LABS: CALCIUM 8.6 mg/dL (8.5-10.1); CREATININE 0.6 mg/dL (0.55-1.3); POTASSIUM 3.6 mmol/L (3.5-5.1)
[2019-09-27 05:11] VITALS: TEMP 98.8; BMI 28.3
[2019-09-27 06:27] VITALS: BP 125/62; PULSE 88
[2019-09-27 06:57] LABS: PLATELET ESTIMATE ADEQUATE
[2019-09-27 07:24] LABS: MAGNESIUM 1.7 mg/dL (1.8-2.4)
[2019-09-27] MEDS ORDERED: AMPICILLIN - 1 GM in SODIUM CHLORIDE 100 ML IVPB SCH (08:40)
== END 2019-09-27 05:45 | disposition short-term general hospital (02) | DRG 563 ==
LOC: JDEL 03:00 → JLDR 03:45
PROVIDERS: ADMIT Obstetrics & Gynecology; ATTEND Obstetrics & Gynecology
DX: O60.00 Preterm labor without delivery, unspecified trimester (principal); Z3A.00 Weeks of gestation of pregnancy not specified
CPT/HCPCS: 36415; 80048; 80307; 81003; 83735; 85025; 85610; 85730; 86780; 86850; 86900; 86901; 87389; 96372

== ENCOUNTER 2022-09-19 22:46 | Inpatient (IN) | payer OTHER ==
[2022-09-19 23:34] VITALS: BMI 49.9
[2022-09-20] MEDS ORDERED: NICOTINE POLACRILEX 4 MG GUM BUC PRN (00:34)
[2022-09-20] MEDS ORDERED: POLYETHYLENE GLYCOL (HEALTHYLAX) 3350 17 GM PACKET PO PRN (00:34)
[2022-09-20] MEDS ORDERED: NALOXONE HCL (KLOXXADO) 8 MG SPRAY NS PRN (00:34)
[2022-09-20] MEDS ORDERED: guaiFENesin 600 MG TABLET.ER (FP) PO PRN (00:34)
[2022-09-20] MEDS ORDERED: IBUPROFEN 600 MG TABLET (FP) PO PRN (00:34)
[2022-09-20] MEDS ORDERED: BENZONATATE 200 MG CAPSULE PO PRN (00:34)
[2022-09-20] MEDS ORDERED: NALOXONE HCL 0.4 MG/ML VIAL IM PRN (00:34)
[2022-09-20] MEDS ORDERED: AMMONIUM LACTATE 12% LOTION 225 GM BOTTLE TP PRN (00:34)
[2022-09-20] MEDS ORDERED: ACETAMINOPHEN 325 MG TABLET (FP) PO PRN (00:34)
[2022-09-20] MEDS ORDERED: IBUPROFEN 400 MG TABLET (FP) PO PRN (00:34)
[2022-09-20] MEDS ORDERED: COLLOIDAL OATMEAL 1 BAR EACH TP PRN (00:34)
[2022-09-20] MEDS ORDERED: MAGNESIUM HYDROX 2400MG/30ML ORAL SUSPENSION 30 ML CUP PO PRN (00:34)
[2022-09-20] MEDS ORDERED: BENZOCAINE/MENTHOL (CHLORASEPTIC ) LOZENGE MM PRN (00:34)
[2022-09-20] MEDS ORDERED: TUBERCULIN PPD 5 TU/0.1ML VIAL ID ONE (02:07)
[2022-09-20] MEDS: NICOTINE 14 MG/24 HOURS TOPICAL PATCH TD SCH (10:30)
[2022-09-20] MEDS: PRENATAL VITAMINS W/ FOLIC ACID TABLET (FP) PO SCH (10:30)
[2022-09-20 11:40] LABS: HEMATOCRIT 37.5 % (32.4-45.2); HEMOGLOBIN 12.7 GM/dL (10.7-15.3); MCH 30.1 pg (25.7-33.7); MCHC 33.9 g/dl (32.0-36.0); MEAN CELL VOLUME 88.6 fl (80-96); MEAN PLT VOLUME 8.3 fl (7.5-11.1); PLATELET COUNT 368 10^3/uL (134-434); RBC 4.24 M/mm3 (3.60-5.2); RDW 13.5 % (11.6-15.6); WHITE BLOOD COUNT 14.6 K/mm3 (4.0-10.0)
[2022-09-20 12:37] LABS: POTASSIUM 3.6 mmol/L (3.5-5.1)
[2022-09-20 12:51] LABS: CALCIUM 9.1 mg/dL (8.5-10.1)
[2022-09-20 12:53] LABS: ALBUMIN 3.1 g/dl (3.4-5.0); BLOOD UREA NITROGEN 7.3 mg/dL (7-18)
[2022-09-20 12:56] LABS: BILIRUBIN,TOTAL 0.5 mg/dL (0.2-1); CREATININE 0.8 mg/dL (0.55-1.3)
[2022-09-20 12:58] LABS: TOT PROT 6.5 g/dl (6.4-8.2)
[2022-09-20 16:36] LABS: SYPHILIS W/ RPR CONF NON-REACTIVE (NONREACTIVE)
[2022-09-20 18:29] LABS: HIV INTERPRETATION NEGATIVE (NEGATIVE)
[2022-09-20] MEDS: QUEtiapine FUMARATE 100 MG TABLET (FP) PO SCH (21:23)
[2022-09-20] MEDS: THIAMINE HCL 100 MG TABLET (FP) PO SCH (21:23)
[2022-09-20] MEDS ORDERED: MELATONIN 5 MG TABLETS PO SCH (22:00)
[2022-09-21] MEDS: NICOTINE 14 MG/24 HOURS TOPICAL PATCH TD SCH (10:21)
[2022-09-21] MEDS: PRENATAL VITAMINS W/ FOLIC ACID TABLET (FP) PO SCH (10:21)
[2022-09-21] MEDS: QUEtiapine FUMARATE 100 MG TABLET (FP) PO SCH (21:10)
[2022-09-21] MEDS: THIAMINE HCL 100 MG TABLET (FP) PO SCH (21:10)
[2022-09-21] MEDS: hydrOXYzine PAMOATE 25 MG CAPSULE (FP) PO PRN (21:11)
[2022-09-22] MEDS: NICOTINE 14 MG/24 HOURS TOPICAL PATCH TD SCH (10:15)
[2022-09-22] MEDS: PRENATAL VITAMINS W/ FOLIC ACID TABLET (FP) PO SCH (10:15)
[2022-09-22] MEDS ORDERED: QUEtiapine FUMARATE 100 MG TABLET (FP) PO SCH (10:40)
[2022-09-22] MEDS: ESCITALOPRAM OXALATE 10 MG TABLET PO SCH (11:38)
[2022-09-22 14:00] LABS: EPI CELLS 11 /uL (0-25.1); HYALINE CASTS 5 /uL (0-3.1); URINE APPEARANCE CLEAR; URINE BACTERIA >9,000 /uL (0-1359); URINE BILIRUBIN NEGATIVE (NEGATIVE); URINE COLOR YELLOW; URINE GLUCOSE (UA) NEGATIVE (NEGATIVE); URINE KETONE TRACE (NEGATIVE); URINE LEUK ESTERASE 1+ (NEGATIVE); URINE NITRITE NEGATIVE (NEGATIVE); URINE PROTEIN TRACE (NEGATIVE); URINE RBC 7 /uL (0-23.9); URINE UROBILINOGEN 0.2 mg/dL (0.2-1.0); URINE WBC 238 /uL (0-25.8)
[2022-09-22] MEDS: THIAMINE HCL 100 MG TABLET (FP) PO SCH (21:14)
[2022-09-22] MEDS: QUEtiapine FUMARATE 200 MG TABLET PO SCH (21:14)
[2022-09-23] MEDS: ESCITALOPRAM OXALATE 10 MG TABLET PO SCH (10:14)
[2022-09-23] MEDS: PRENATAL VITAMINS W/ FOLIC ACID TABLET (FP) PO SCH (10:14)
[2022-09-23] MEDS: NICOTINE 14 MG/24 HOURS TOPICAL PATCH TD SCH (10:15)
[2022-09-23] MEDS: THIAMINE HCL 100 MG TABLET (FP) PO SCH (21:51)
[2022-09-23] MEDS: QUEtiapine FUMARATE 200 MG TABLET PO SCH (21:51)
[2022-09-24] MEDS: PRENATAL VITAMINS W/ FOLIC ACID TABLET (FP) PO SCH (09:54)
[2022-09-24] MEDS: ESCITALOPRAM OXALATE 10 MG TABLET PO SCH (09:54)
[2022-09-24] MEDS: NICOTINE 14 MG/24 HOURS TOPICAL PATCH TD SCH (09:55)
[2022-09-24] MEDS: THIAMINE HCL 100 MG TABLET (FP) PO SCH (21:06)
[2022-09-24] MEDS: QUEtiapine FUMARATE 200 MG TABLET PO SCH (21:06)
[2022-09-25] MEDS ORDERED: FLUCONAZOLE 100 MG TABLET (UD) PO ONE (09:53)
[2022-09-25] MEDS: NICOTINE 14 MG/24 HOURS TOPICAL PATCH TD SCH (09:57)
[2022-09-25] MEDS: ESCITALOPRAM OXALATE 10 MG TABLET PO SCH (09:57)
[2022-09-25] MEDS: PRENATAL VITAMINS W/ FOLIC ACID TABLET (FP) PO SCH (09:57)
[2022-09-25] MEDS: COLLOIDAL OATMEAL 1 BAR EACH TP PRN (09:59)
[2022-09-25] MEDS: PANTOPRAZOLE 20 MG TABLET PO SCH (11:08)
[2022-09-25] MEDS: QUEtiapine FUMARATE 200 MG TABLET PO SCH (21:13)
[2022-09-25] MEDS: THIAMINE HCL 100 MG TABLET (FP) PO SCH (21:13)
[2022-09-26] MEDS: ESCITALOPRAM OXALATE 10 MG TABLET PO SCH (09:34)
[2022-09-26] MEDS: PANTOPRAZOLE 20 MG TABLET PO SCH (09:34)
[2022-09-26] MEDS: PRENATAL VITAMINS W/ FOLIC ACID TABLET (FP) PO SCH (09:34)
[2022-09-26] MEDS: NICOTINE 14 MG/24 HOURS TOPICAL PATCH TD SCH (09:34)
[2022-09-26] MEDS: QUEtiapine FUMARATE 200 MG TABLET PO SCH (21:41)
[2022-09-26] MEDS: THIAMINE HCL 100 MG TABLET (FP) PO SCH (21:41)
[2022-09-27] MEDS: PRENATAL VITAMINS W/ FOLIC ACID TABLET (FP) PO SCH (09:42)
[2022-09-27] MEDS: PANTOPRAZOLE 20 MG TABLET PO SCH (09:43)
[2022-09-27] MEDS: ESCITALOPRAM OXALATE 10 MG TABLET PO SCH (09:43)
[2022-09-27] MEDS: NICOTINE 14 MG/24 HOURS TOPICAL PATCH TD SCH (09:43)
[2022-09-27] MEDS: QUEtiapine FUMARATE 200 MG TABLET PO SCH (21:25)
[2022-09-27] MEDS: THIAMINE HCL 100 MG TABLET (FP) PO SCH (21:25)
[2022-09-28] MEDS: ESCITALOPRAM OXALATE 10 MG TABLET PO SCH (10:03)
[2022-09-28] MEDS: PANTOPRAZOLE 20 MG TABLET PO SCH (10:03)
[2022-09-28] MEDS: NICOTINE 14 MG/24 HOURS TOPICAL PATCH TD SCH (10:03)
[2022-09-28] MEDS: PRENATAL VITAMINS W/ FOLIC ACID TABLET (FP) PO SCH (10:03)
[2022-09-28] MEDS: INSULIN SLIDING SCALE (NOVOLOG) 1 VIAL SQ SCH (17:40)
[2022-09-28] MEDS: traZODone HCL 100 MG TABLET (FP) PO SCH (21:31)
[2022-09-28] MEDS: QUEtiapine FUMARATE 200 MG TABLET PO SCH (21:31)
[2022-09-28] MEDS: THIAMINE HCL 100 MG TABLET (FP) PO SCH (21:32)
[2022-09-28 22:35] LABS: EPI CELLS 26 /uL (0-25.1); HYALINE CASTS 2 /uL (0-3.1); PH,URINE 5.5 (5.0-8.0); URINE APPEARANCE CLEAR; URINE BACTERIA 28 /uL (0-1359); URINE BILIRUBIN NEGATIVE (NEGATIVE); URINE COLOR YELLOW; URINE GLUCOSE (UA) 3+ (NEGATIVE); URINE KETONE TRACE (NEGATIVE); URINE LEUK ESTERASE TRACE (NEGATIVE); URINE NITRITE NEGATIVE (NEGATIVE); URINE PROTEIN TRACE (NEGATIVE); URINE RBC 7 /uL (0-23.9); URINE UROBILINOGEN 0.2 mg/dL (0.2-1.0); URINE WBC 158 /uL (0-25.8)
[2022-09-29] MEDS ORDERED: INSULIN (NOVOLOG) ASPART 100 UNITS/ML 10ML VIAL ONE (06:57)
[2022-09-29] MEDS: metFORMIN HCL 500 MG TABLET (FP) PO SCH (06:58)
[2022-09-29] MEDS: INSULIN SLIDING SCALE (NOVOLOG) 1 VIAL SQ SCH ×2 (06:58→16:42)
[2022-09-29] MEDS: PRENATAL VITAMINS W/ FOLIC ACID TABLET (FP) PO SCH (09:56)
[2022-09-29] MEDS: ESCITALOPRAM OXALATE 10 MG TABLET PO SCH (09:56)
[2022-09-29] MEDS: NICOTINE 14 MG/24 HOURS TOPICAL PATCH TD SCH (09:57)
[2022-09-29 10:42] LABS: BASO % 0.8 % (0-2.0); EOS % 2.2 % (0-4.5); HEMATOCRIT 39.8 % (32.4-45.2); HEMOGLOBIN 12.9 GM/dL (10.7-15.3); LYMPH % 33.6 % (8-40); MCH 29.5 pg (25.7-33.7); MCHC 32.5 g/dl (32.0-36.0); MEAN CELL VOLUME 90.8 fl (80-96); MEAN PLT VOLUME 9.4 fl (7.5-11.1); MONO % 8.7 % (3.8-10.2); NEUT % 54.7 % (42.8-82.8); PLATELET COUNT 283 10^3/uL (134-434); RBC 4.38 M/mm3 (3.60-5.2); RDW 13.6 % (11.6-15.6); WHITE BLOOD COUNT 12.1 K/mm3 (4.0-10.0)
[2022-09-29 11:14] LABS: POTASSIUM 4.7 mmol/L (3.5-5.1)
[2022-09-29 11:19] LABS: CALCIUM 8.7 mg/dL (8.5-10.1)
[2022-09-29 11:20] LABS: ALBUMIN 3.2 g/dl (3.4-5.0); BLOOD UREA NITROGEN 15.1 mg/dL (7-18)
[2022-09-29 11:23] LABS: CREATININE 0.8 mg/dL (0.55-1.3)
[2022-09-29 11:24] LABS: BILIRUBIN,TOTAL 0.3 mg/dL (0.2-1); TOT PROT 7.4 g/dl (6.4-8.2)
[2022-09-29] MEDS ORDERED: INSULIN (NOVOLOG) ASPART 100 UNITS/ML 10ML VIAL SQ ONE (12:18)
[2022-09-29] MEDS ORDERED: INSULIN SLIDING SCALE (NOVOLOG) 1 VIAL SQ SCH ×2 (16:30)
[2022-09-29] MEDS: LOPERAMIDE HCL 2 MG CAPSULE PO PRN (16:40)
[2022-09-29] MEDS: THIAMINE HCL 100 MG TABLET (FP) PO SCH (21:17)
[2022-09-29] MEDS: QUEtiapine FUMARATE 200 MG TABLET PO SCH (21:17)
[2022-09-29] MEDS: traZODone HCL 100 MG TABLET (FP) PO SCH (21:17)
[2022-09-30] MEDS: metFORMIN HCL 500 MG TABLET (FP) PO SCH (07:21)
[2022-09-30] MEDS: INSULIN SLIDING SCALE (NOVOLOG) 1 VIAL SQ SCH ×3 (07:23→17:01)
[2022-09-30] MEDS ORDERED: INSULIN (NOVOLOG) ASPART 100 UNITS/ML 10ML VIAL ONE ×2 (07:24→16:51)
[2022-09-30] MEDS: PRENATAL VITAMINS W/ FOLIC ACID TABLET (FP) PO SCH (09:31)
[2022-09-30] MEDS: NICOTINE 14 MG/24 HOURS TOPICAL PATCH TD SCH (09:31)
[2022-09-30] MEDS: ESCITALOPRAM OXALATE 10 MG TABLET PO SCH (10:58)
[2022-09-30] MEDS: traZODone HCL 100 MG TABLET (FP) PO SCH (21:13)
[2022-09-30] MEDS: THIAMINE HCL 100 MG TABLET (FP) PO SCH (21:13)
[2022-09-30] MEDS: QUEtiapine FUMARATE 200 MG TABLET PO SCH (21:13)
[2022-10-01] MEDS: metFORMIN HCL 500 MG TABLET (FP) PO SCH (07:39)
[2022-10-01] MEDS ORDERED: INSULIN (NOVOLOG) ASPART 100 UNITS/ML 10ML VIAL ONE ×2 (07:43→16:49)
[2022-10-01] MEDS: INSULIN SLIDING SCALE (NOVOLOG) 1 VIAL SQ SCH ×3 (07:44→16:59)
[2022-10-01] MEDS: PRENATAL VITAMINS W/ FOLIC ACID TABLET (FP) PO SCH (09:31)
[2022-10-01] MEDS: ESCITALOPRAM OXALATE 10 MG TABLET PO SCH (09:31)
[2022-10-01] MEDS: NICOTINE 14 MG/24 HOURS TOPICAL PATCH TD SCH (09:32)
[2022-10-01] MEDS: LOPERAMIDE HCL 2 MG CAPSULE PO PRN (12:24)
[2022-10-01] MEDS: QUEtiapine FUMARATE 200 MG TABLET PO SCH (21:22)
[2022-10-01] MEDS: THIAMINE HCL 100 MG TABLET (FP) PO SCH (21:22)
[2022-10-01] MEDS: traZODone HCL 100 MG TABLET (FP) PO SCH (21:22)
[2022-10-02] MEDS ORDERED: INSULIN (NOVOLOG) ASPART 100 UNITS/ML 10ML VIAL ONE ×4 (07:50→16:54)
[2022-10-02] MEDS: metFORMIN HCL 500 MG TABLET (FP) PO SCH ×2 (07:50→16:57)
[2022-10-02] MEDS: INSULIN SLIDING SCALE (NOVOLOG) 1 VIAL SQ SCH ×3 (07:52→16:58)
[2022-10-02] MEDS: ESCITALOPRAM OXALATE 10 MG TABLET PO SCH (09:31)
[2022-10-02] MEDS: PRENATAL VITAMINS W/ FOLIC ACID TABLET (FP) PO SCH (09:31)
[2022-10-02] MEDS: NICOTINE 14 MG/24 HOURS TOPICAL PATCH TD SCH (09:32)
[2022-10-02] MEDS: QUEtiapine FUMARATE 200 MG TABLET PO SCH (21:22)
[2022-10-02] MEDS: traZODone HCL 100 MG TABLET (FP) PO SCH (21:23)
[2022-10-02] MEDS: THIAMINE HCL 100 MG TABLET (FP) PO SCH (21:23)
[2022-10-03] MEDS: metFORMIN HCL 500 MG TABLET (FP) PO SCH ×2 (07:37→18:08)
[2022-10-03] MEDS ORDERED: INSULIN (NOVOLOG) ASPART 100 UNITS/ML 10ML VIAL ONE ×2 (07:38→12:28)
[2022-10-03] MEDS: INSULIN SLIDING SCALE (NOVOLOG) 1 VIAL SQ SCH ×3 (07:38→17:22)
[2022-10-03] MEDS: NICOTINE 14 MG/24 HOURS TOPICAL PATCH TD SCH (09:45)
[2022-10-03] MEDS: ESCITALOPRAM OXALATE 10 MG TABLET PO SCH (09:45)
[2022-10-03] MEDS: PRENATAL VITAMINS W/ FOLIC ACID TABLET (FP) PO SCH (09:45)
[2022-10-03] MEDS: hydrOXYzine PAMOATE 25 MG CAPSULE (FP) PO PRN ×2 (09:46→21:18)
[2022-10-03] MEDS: MAG HYDROX/AL HYDROX/SIMETH 30 ML UNIT-DOSE CUP PO PRN ×2 (13:26→20:34)
[2022-10-03] MEDS: THIAMINE HCL 100 MG TABLET (FP) PO SCH (21:18)
[2022-10-03] MEDS: traZODone HCL 100 MG TABLET (FP) PO SCH (21:18)
[2022-10-03] MEDS: QUEtiapine FUMARATE 200 MG TABLET PO SCH (21:18)
[2022-10-04] MEDS: metFORMIN HCL 500 MG TABLET (FP) PO SCH ×2 (07:38→16:37)
[2022-10-04] MEDS: INSULIN SLIDING SCALE (NOVOLOG) 1 VIAL SQ SCH ×3 (07:39→16:54)
[2022-10-04] MEDS ORDERED: INSULIN (NOVOLOG) ASPART 100 UNITS/ML 10ML VIAL ONE ×3 (07:41→16:25)
[2022-10-04] MEDS: ESCITALOPRAM OXALATE 10 MG TABLET PO SCH (09:53)
[2022-10-04] MEDS: NICOTINE 14 MG/24 HOURS TOPICAL PATCH TD SCH (09:53)
[2022-10-04] MEDS: PRENATAL VITAMINS W/ FOLIC ACID TABLET (FP) PO SCH (09:53)
[2022-10-04] MEDS: COLLOIDAL OATMEAL 1 BAR EACH TP PRN (10:35)
[2022-10-04] MEDS: LOPERAMIDE HCL 2 MG CAPSULE PO PRN (14:16)
[2022-10-04] MEDS: MAG HYDROX/AL HYDROX/SIMETH 30 ML UNIT-DOSE CUP PO PRN (18:38)
[2022-10-04] MEDS: THIAMINE HCL 100 MG TABLET (FP) PO SCH (21:30)
[2022-10-04] MEDS: QUEtiapine FUMARATE 200 MG TABLET PO SCH (21:31)
[2022-10-04] MEDS: traZODone HCL 100 MG TABLET (FP) PO SCH (21:31)
[2022-10-04] MEDS: hydrOXYzine PAMOATE 25 MG CAPSULE (FP) PO PRN (21:32)
[2022-10-05] MEDS: INSULIN SLIDING SCALE (NOVOLOG) 1 VIAL SQ SCH ×3 (07:06→16:49)
[2022-10-05] MEDS: metFORMIN HCL 500 MG TABLET (FP) PO SCH (07:08)
[2022-10-05] MEDS ORDERED: INSULIN (NOVOLOG) ASPART 100 UNITS/ML 10ML VIAL ONE ×3 (07:13→16:30)
[2022-10-05] MEDS: ESCITALOPRAM OXALATE 10 MG TABLET PO SCH (09:47)
[2022-10-05] MEDS: PRENATAL VITAMINS W/ FOLIC ACID TABLET (FP) PO SCH (09:47)
[2022-10-05] MEDS: hydrOXYzine PAMOATE 25 MG CAPSULE (FP) PO PRN ×2 (09:48→21:30)
[2022-10-05] MEDS: MAG HYDROX/AL HYDROX/SIMETH 30 ML UNIT-DOSE CUP PO PRN ×2 (09:48→18:53)
[2022-10-05] MEDS: NICOTINE 14 MG/24 HOURS TOPICAL PATCH TD SCH (10:09)
[2022-10-05] MEDS: ZIPRASIDONE 20 MG CAPSULE PO SCH (16:49)
[2022-10-05] MEDS: THIAMINE HCL 100 MG TABLET (FP) PO SCH (21:30)
[2022-10-05] MEDS: traZODone HCL 100 MG TABLET (FP) PO SCH (21:30)
[2022-10-06] MEDS: ZIPRASIDONE 20 MG CAPSULE PO SCH ×2 (07:03→16:53)
[2022-10-06] MEDS ORDERED: INSULIN (NOVOLOG) ASPART 100 UNITS/ML 10ML VIAL ONE (07:05)
[2022-10-06] MEDS: INSULIN SLIDING SCALE (NOVOLOG) 1 VIAL SQ SCH ×3 (07:06→16:52)
[2022-10-06] MEDS: PRENATAL VITAMINS W/ FOLIC ACID TABLET (FP) PO SCH (09:34)
[2022-10-06] MEDS: ESCITALOPRAM OXALATE 10 MG TABLET PO SCH (09:34)
[2022-10-06] MEDS: NICOTINE 14 MG/24 HOURS TOPICAL PATCH TD SCH (09:35)
[2022-10-06] MEDS: LOPERAMIDE HCL 2 MG CAPSULE PO PRN (12:11)
[2022-10-06] MEDS: hydrOXYzine PAMOATE 25 MG CAPSULE (FP) PO PRN (21:33)
[2022-10-06] MEDS: traZODone HCL 100 MG TABLET (FP) PO SCH (21:33)
[2022-10-06] MEDS: THIAMINE HCL 100 MG TABLET (FP) PO SCH (21:33)
[2022-10-06] MEDS: MAG HYDROX/AL HYDROX/SIMETH 30 ML UNIT-DOSE CUP PO PRN (23:34)
[2022-10-07] MEDS: ZIPRASIDONE 20 MG CAPSULE PO SCH ×2 (07:10→16:56)
[2022-10-07] MEDS: INSULIN SLIDING SCALE (NOVOLOG) 1 VIAL SQ SCH ×3 (07:10→17:14)
[2022-10-07] MEDS: PRENATAL VITAMINS W/ FOLIC ACID TABLET (FP) PO SCH (10:02)
[2022-10-07] MEDS: NICOTINE 14 MG/24 HOURS TOPICAL PATCH TD SCH (10:03)
[2022-10-07] MEDS: ESCITALOPRAM OXALATE 10 MG TABLET PO SCH (10:03)
[2022-10-07] MEDS: hydrOXYzine PAMOATE 25 MG CAPSULE (FP) PO PRN ×2 (10:03→21:56)
[2022-10-07] MEDS ORDERED: INSULIN (NOVOLOG) ASPART 100 UNITS/ML 10ML VIAL ONE (12:08)
[2022-10-07] MEDS: traZODone HCL 100 MG TABLET (FP) PO SCH (21:56)
[2022-10-07] MEDS: THIAMINE HCL 100 MG TABLET (FP) PO SCH (21:56)
[2022-10-08] MEDS ORDERED: INSULIN (NOVOLOG) ASPART 100 UNITS/ML 10ML VIAL ONE ×3 (07:34→16:50)
[2022-10-08] MEDS: INSULIN SLIDING SCALE (NOVOLOG) 1 VIAL SQ SCH ×3 (07:34→16:50)
[2022-10-08] MEDS: ZIPRASIDONE 20 MG CAPSULE PO SCH ×3 (07:37→20:17)
[2022-10-08] MEDS: PRENATAL VITAMINS W/ FOLIC ACID TABLET (FP) PO SCH (10:03)
[2022-10-08] MEDS: ESCITALOPRAM OXALATE 10 MG TABLET PO SCH (10:03)
[2022-10-08] MEDS: NICOTINE 14 MG/24 HOURS TOPICAL PATCH TD SCH (10:04)
[2022-10-08] MEDS: hydrOXYzine PAMOATE 25 MG CAPSULE (FP) PO PRN (21:29)
[2022-10-08] MEDS: THIAMINE HCL 100 MG TABLET (FP) PO SCH (21:29)
[2022-10-08] MEDS: traZODone HCL 100 MG TABLET (FP) PO SCH (21:29)
[2022-10-09] MEDS: ZIPRASIDONE 20 MG CAPSULE PO SCH ×2 (07:09→17:17)
[2022-10-09] MEDS: INSULIN SLIDING SCALE (NOVOLOG) 1 VIAL SQ SCH ×3 (07:10→17:16)
[2022-10-09] MEDS: NICOTINE 14 MG/24 HOURS TOPICAL PATCH TD SCH (10:28)
[2022-10-09] MEDS: PRENATAL VITAMINS W/ FOLIC ACID TABLET (FP) PO SCH (10:28)
[2022-10-09] MEDS: ESCITALOPRAM OXALATE 10 MG TABLET PO SCH (10:28)
[2022-10-09] MEDS: THIAMINE HCL 100 MG TABLET (FP) PO SCH (21:32)
[2022-10-09] MEDS: traZODone HCL 100 MG TABLET (FP) PO SCH (21:32)
[2022-10-09] MEDS: hydrOXYzine PAMOATE 25 MG CAPSULE (FP) PO PRN (21:32)
[2022-10-10] MEDS: ZIPRASIDONE 20 MG CAPSULE PO SCH ×2 (07:21→16:48)
[2022-10-10] MEDS ORDERED: INSULIN (NOVOLOG) ASPART 100 UNITS/ML 10ML VIAL ONE ×3 (07:32→16:22)
[2022-10-10] MEDS: INSULIN SLIDING SCALE (NOVOLOG) 1 VIAL SQ SCH ×3 (07:36→16:48)
[2022-10-10] MEDS: PRENATAL VITAMINS W/ FOLIC ACID TABLET (FP) PO SCH (09:53)
[2022-10-10] MEDS: ESCITALOPRAM OXALATE 10 MG TABLET PO SCH (09:53)
[2022-10-10] MEDS: hydrOXYzine PAMOATE 25 MG CAPSULE (FP) PO PRN ×2 (09:54→21:22)
[2022-10-10] MEDS: NICOTINE 14 MG/24 HOURS TOPICAL PATCH TD SCH (10:19)
[2022-10-10] MEDS: THIAMINE HCL 100 MG TABLET (FP) PO SCH (21:22)
[2022-10-10] MEDS: traZODone HCL 100 MG TABLET (FP) PO SCH (21:22)
[2022-10-11] MEDS ORDERED: INSULIN (NOVOLOG) ASPART 100 UNITS/ML 10ML VIAL ONE ×2 (06:32→16:38)
[2022-10-11] MEDS: INSULIN SLIDING SCALE (NOVOLOG) 1 VIAL SQ SCH ×3 (06:34→17:07)
[2022-10-11] MEDS: ZIPRASIDONE 20 MG CAPSULE PO SCH ×2 (07:07→22:06)
[2022-10-11] MEDS: ESCITALOPRAM OXALATE 10 MG TABLET PO SCH (09:57)
[2022-10-11] MEDS: PRENATAL VITAMINS W/ FOLIC ACID TABLET (FP) PO SCH (09:57)
[2022-10-11] MEDS: hydrOXYzine PAMOATE 25 MG CAPSULE (FP) PO PRN ×2 (09:58→21:33)
[2022-10-11] MEDS: NICOTINE 14 MG/24 HOURS TOPICAL PATCH TD SCH (10:04)
[2022-10-11] MEDS: MAG HYDROX/AL HYDROX/SIMETH 30 ML UNIT-DOSE CUP PO PRN (15:23)
[2022-10-11] MEDS: THIAMINE HCL 100 MG TABLET (FP) PO SCH (21:33)
[2022-10-11] MEDS: traZODone HCL 100 MG TABLET (FP) PO SCH (21:33)
[2022-10-12] MEDS: ZIPRASIDONE 20 MG CAPSULE PO SCH ×2 (07:06→16:48)
[2022-10-12] MEDS: INSULIN SLIDING SCALE (NOVOLOG) 1 VIAL SQ SCH ×3 (07:07→16:47)
[2022-10-12] MEDS: METHOCARBAMOL 500 MG TABLET PO PRN ×2 (10:06→21:05)
[2022-10-12] MEDS: ESCITALOPRAM OXALATE 10 MG TABLET PO SCH (10:06)
[2022-10-12] MEDS: NICOTINE 14 MG/24 HOURS TOPICAL PATCH TD SCH (10:06)
[2022-10-12] MEDS: PRENATAL VITAMINS W/ FOLIC ACID TABLET (FP) PO SCH (10:06)
[2022-10-12] MEDS ORDERED: INSULIN (NOVOLOG) ASPART 100 UNITS/ML 10ML VIAL ONE (12:06)
[2022-10-12] MEDS: COLLOIDAL OATMEAL 1 BAR EACH TP PRN (14:03)
[2022-10-12] MEDS: THIAMINE HCL 100 MG TABLET (FP) PO SCH (21:03)
[2022-10-12] MEDS: hydrOXYzine PAMOATE 25 MG CAPSULE (FP) PO PRN (21:05)
[2022-10-12] MEDS: traZODone HCL 50 MG TABLET (FP) PO SCH (21:05)
[2022-10-13] MEDS: INSULIN SLIDING SCALE (NOVOLOG) 1 VIAL SQ SCH ×3 (06:44→16:52)
[2022-10-13] MEDS: ZIPRASIDONE 20 MG CAPSULE PO SCH ×2 (07:03→16:54)
[2022-10-13] MEDS ORDERED: INSULIN (NOVOLOG) ASPART 100 UNITS/ML 10ML VIAL ONE ×3 (07:07→17:03)
[2022-10-13 07:18] VITALS: RESP 18
[2022-10-13] MEDS: ESCITALOPRAM OXALATE 10 MG TABLET PO SCH (09:46)
[2022-10-13] MEDS: hydrOXYzine PAMOATE 25 MG CAPSULE (FP) PO PRN ×2 (09:46→21:29)
[2022-10-13] MEDS: PRENATAL VITAMINS W/ FOLIC ACID TABLET (FP) PO SCH (09:46)
[2022-10-13] MEDS: NICOTINE 14 MG/24 HOURS TOPICAL PATCH TD SCH (09:46)
[2022-10-13] MEDS: MAG HYDROX/AL HYDROX/SIMETH 30 ML UNIT-DOSE CUP PO PRN (14:32)
[2022-10-13] MEDS: THIAMINE HCL 100 MG TABLET (FP) PO SCH (21:29)
[2022-10-13] MEDS: traZODone HCL 50 MG TABLET (FP) PO SCH (21:29)
[2022-10-13] MEDS: INSULIN (LEVEMIR) 100 UNITS/ML UNITS SQ SCH (21:30)
[2022-10-13] MEDS: METHOCARBAMOL 500 MG TABLET PO PRN (21:30)
[2022-10-14] MEDS: ZIPRASIDONE 20 MG CAPSULE PO SCH ×2 (08:09→16:43)
[2022-10-14] MEDS: INSULIN SLIDING SCALE (NOVOLOG) 1 VIAL SQ SCH ×3 (08:09→16:43)
[2022-10-14] MEDS: METHOCARBAMOL 500 MG TABLET PO PRN ×2 (09:43→21:25)
[2022-10-14] MEDS: ESCITALOPRAM OXALATE 10 MG TABLET PO SCH (09:43)
[2022-10-14] MEDS: hydrOXYzine PAMOATE 25 MG CAPSULE (FP) PO PRN ×2 (09:43→21:26)
[2022-10-14] MEDS: PRENATAL VITAMINS W/ FOLIC ACID TABLET (FP) PO SCH (09:43)
[2022-10-14] MEDS: NICOTINE 14 MG/24 HOURS TOPICAL PATCH TD SCH (10:00)
[2022-10-14] MEDS: MAG HYDROX/AL HYDROX/SIMETH 30 ML UNIT-DOSE CUP PO PRN (14:25)
[2022-10-14] MEDS: NICOTINE 10 MG CARTRIDGE (INHALER) IH SCH (15:41)
[2022-10-14] MEDS ORDERED: INSULIN (NOVOLOG) ASPART 100 UNITS/ML 10ML VIAL ONE (16:25)
[2022-10-14] MEDS: THIAMINE HCL 100 MG TABLET (FP) PO SCH (21:25)
[2022-10-14] MEDS: traZODone HCL 50 MG TABLET (FP) PO SCH (21:25)
[2022-10-14] MEDS: INSULIN (LEVEMIR) 100 UNITS/ML UNITS SQ SCH (21:27)
[2022-10-14] MEDS ORDERED: INSULIN (LEVEMIR) 100 UNITS/ML UNITS SQ ONE (21:37)
[2022-10-15] MEDS: ZIPRASIDONE 20 MG CAPSULE PO SCH ×2 (07:05→17:13)
[2022-10-15] MEDS ORDERED: INSULIN (NOVOLOG) ASPART 100 UNITS/ML 10ML VIAL ONE ×2 (07:06→12:27)
[2022-10-15] MEDS: INSULIN SLIDING SCALE (NOVOLOG) 1 VIAL SQ SCH ×3 (07:08→17:11)
[2022-10-15] MEDS ORDERED: NICOTINE 14 MG/24 HOURS TOPICAL PATCH TD PRN (09:14)
[2022-10-15] MEDS: ESCITALOPRAM OXALATE 10 MG TABLET PO SCH (10:03)
[2022-10-15] MEDS: PRENATAL VITAMINS W/ FOLIC ACID TABLET (FP) PO SCH (10:03)
[2022-10-15] MEDS: hydrOXYzine PAMOATE 25 MG CAPSULE (FP) PO PRN ×2 (10:03→21:29)
[2022-10-15] MEDS: METHOCARBAMOL 500 MG TABLET PO PRN ×2 (10:03→21:29)
[2022-10-15] MEDS: NICOTINE 10 MG CARTRIDGE (INHALER) IH SCH (10:05)
[2022-10-15] MEDS: LOPERAMIDE HCL 2 MG CAPSULE PO PRN (16:03)
[2022-10-15] MEDS: INSULIN (LEVEMIR) 100 UNITS/ML UNITS SQ SCH (21:27)
[2022-10-15] MEDS: traZODone HCL 50 MG TABLET (FP) PO SCH (21:29)
[2022-10-15] MEDS: THIAMINE HCL 100 MG TABLET (FP) PO SCH (21:29)
[2022-10-16] MEDS ORDERED: INSULIN (NOVOLOG) ASPART 100 UNITS/ML 10ML VIAL ONE (06:26)
[2022-10-16] MEDS: INSULIN SLIDING SCALE (NOVOLOG) 1 VIAL SQ SCH (06:27)
[2022-10-16 07:09] VITALS: BP 140/89; PULSE 103; TEMP 97.7
[2022-10-16] MEDS: ZIPRASIDONE 20 MG CAPSULE PO SCH (07:21)
[2022-10-16] MEDS: ESCITALOPRAM OXALATE 10 MG TABLET PO SCH (09:44)
[2022-10-16] MEDS: hydrOXYzine PAMOATE 25 MG CAPSULE (FP) PO PRN (09:44)
[2022-10-16] MEDS: PRENATAL VITAMINS W/ FOLIC ACID TABLET (FP) PO SCH (09:44)
[2022-10-16] MEDS: LOPERAMIDE HCL 2 MG CAPSULE PO PRN (09:46)
[2022-10-16] MEDS: NICOTINE 10 MG CARTRIDGE (INHALER) IH SCH (09:48)
== END 2022-10-16 10:00 | disposition other institution (70) | DRG 772 ==
LOC: YASAS 22:46 → Y5N 23:54
PROVIDERS: ADMIT Allergy & Immunology; ATTEND Psychiatry & Neurology Pain Medicine
PROC: HZ42ZZZ Group Counseling for Substance Abuse Treatment, Cognitive-Behavioral (ICD-10-PCS; principal; 2022-09-19)
DX: F14.20 Cocaine dependence, uncomplicated (principal); F19.282 Other psychoactive substance dependence with psychoactive substance-induced sleep disorder; F19.24 Other psychoactive substance dependence with psychoactive substance-induced mood disorder; F31.9 Bipolar disorder, unspecified; F17.210 Nicotine dependence, cigarettes, uncomplicated; N39.0 Urinary tract infection, site not specified; B96.89 Other specified bacterial agents as the cause of diseases classified elsewhere; G47.00 Insomnia, unspecified; E11.9 Type 2 diabetes mellitus without complications; Z79.84 Long term (current) use of oral hypoglycemic drugs; M54.89 Other dorsalgia; E66.01 Morbid (severe) obesity due to excess calories; Z68.43 Body mass index [BMI] 50.0-59.9, adult
CPT/HCPCS: 36415; 80053; 81003; 81025; 82962; 83036; 85025; 85027; 86780; 86803; 87086; 87389; 87491; 87591; 87635; 87661; 87811; 93005; 93010